=== PATIENT | female | born 1955 | race Caucasian/White ===

== ENCOUNTER 2025-07-08 15:59 | Emergency (ER) | payer OTHER, MEDICARE, SELFPAY ==
--- OUTSIDE RECORDS SUMMARY | 2025-07-05 14:45 | XMS_ITS | Encounter Summary ---
Author Organization [facility] Address [address] [place] [address] Care Team Providers Care Coal Bagger Name Role Phone Gonzalez Simon MD Primary Care Provider [phone] Reason for Visit * Reason Comments Pain Encounter Details Date Type Department Care Team (Late st Contact Info) Description 07/05/2025 2:45 PM EDT Office Visit [facility] [address] [place] [address] Conrad Conteh PA [address] [place] [address] S/P trigger finger release (Primary Dx) Social History Tobacco Use Types Packs/Day Years Used Date Smoking Tobacco: Never Smokeless Tobacco: Never Alcohol Use Standard Drinks/Week Comments Not Currently 0 (1 standard drink = 0.6 oz pur e alcohol) Comments Unknown Sex and Gender Information Value Date Recorded Sex Assigned at Not on file Legal Sex Female 6:39 PM EDT Gender Identity Not on file Sexual Orientation Not on file documented as of this encounter Progress Notes * BAKARI Moore - 07/05/2025 2:45 PM EDT Images from the original note were not included. Orthopedic Office note: NAME: Meme Salazar : 1955 EST PT HERE FOR UNSCHEDULED VISIT P/O- S/P LT MF TRIGGER RELEASE 06/30/25 (5DAYS) [facility] - PT CONCERNED ABOUT HAVING CONSTANT NUMBNESS LT MF/IF- PAIN IS TOLERABLE-+BRUISING/SWELLING NOTED- +TYLENOL - SUTURES INTACT Physical Exam General Appearance: Normal. Respiratory: No acute distress. Musculoskeletal: Left hand: Mild dependent bruising noted to the dorsum of the hand, mild bruising noted at the palmar aspect into the index finger and middle finger. No significant hematoma formation. Sutures present at the A1 shawna of the middle finger with no signs or symptoms of infection, no drainage, or discharge, no erythema. Compartments are soft. Intact wrist range of motion with wrist flexion and extension. Paresthesias noted in the index finger and middle finger on two point discrimination to 5 mm. Fingers formed symmetrically including the little finger and thumb with slight delayed interpretation if it is two or one points touching fingers. Able to close fingers into a fist with minimal tightness on end range of motion. Fingers not completely numb to light touch with pinprick noted present to all digits. No palpable trocar. Prior carpal tunnel release with scar noted and prior trigger finger release in the same hand at the ring finger, both appear well healed. Negative Tinel's noted at the cubital tunnel and carpal tunnel. Skin: Warm and dry, no rash. Neurological: Normal. No orders of the defined types were placed in this encounter. Procedures Results ICD-10-CM 1. S/P trigger finger release Z98.890 Assessment & Plan Postoperative status following left middle finger trigger finger release Mild paresthesias and swelling are likely part of the normal postoperative process given the physical exam and symmetric two-point discrimination in all digits. Treatment plan: Ice application, elevation, and tendon glides are advised. Avoid stressing the postoperative wound until the follow-up appointment for suture removal. There is a history of reaction to sutures if left in for more than 12 days. Follow-up: The patient will follow up for reevaluation in 12 days to see if she is ready for sutureremoval. Questions answered in laymen terms at the bedside. The diagnosis, home exercise plan and any ongoing restrictions/ recommendations reviewed. If unable to be reached in office, I recommend evaluation at nearest Emergency Room if any symptoms worsened or new symptoms develop for requiring urgent evaluation. Visit was preformed using [employer] force pilot speech recognition. documented in this encounter Plan of Treatment Upcoming Encounters Date Type Department Care Team (Late st Contact Info) Description 07/11/2025 8:00 AM EDT Office Visit [facility] [address] [place] [address] Yannick Newman, TAPE DUPLICATOR [address] [place] [address] documented as of this encounter Visit Diagnoses Diagnosis S/P trigger finger release- Primary documented in this encounter Care Teams Coal Bagger Relationship Specialty Start Date End Date Gonzalez Simon MD [address] [place] [address] PCP - General Internal Medicine 04/06/25 documented as of this encounter
[2025-07-08 16:10] VITALS: BP 163/91; PULSE 79; TEMP 36.8; O2SAT 98; BMI 28.3
--- OUTSIDE RECORDS SUMMARY | 2025-07-08 16:10 | XMS_ITS | Encounter Summary ---
Author Organization [facility] [facility] tem Address [id number] [address] [place] [address] Care Team Providers Care Trencher Driver Name Role Phone Jayleen Black MANAGER EMPLOYMENT-INSTRUMENT REPAIRER Primary Care Provider + Reason for Visit * Reason Onset Date Comments Med Refill 08/27/2024 Encounter Details Date Type Department Care Team (Late st Contact Info) Description 08/27/2024 Refill [facility] Internal Medicine - Family Medicine [address] [place] [address] Jayleen Black, MANAGER [facility] [address] [place] [address] Chronic anxiety Social History Tobacco Use Types Packs/Day Years Used Date Smoking Tobacco: Never Smokeless Tobacco: Never Alcohol Use Standard Drinks/Week Comments No 0 (1 standard drink = 0.6 oz pur e alcohol) [facility] Utilities Answer Date Recorded In the past 12 months has [employer], gas, oil, or water [employer] threatened to shut off services in your home? No 03/23/2024 Social Connection and Isolat ion Panel [NHANES] Answer Date Recorded In a typical week, how many times do you talk on the phone with family, friends, or neighbors? More than three times a week 03/23/2024 How often do you get togethe r with friends or relatives? More than three times a week 03/23/2024 How often do you attend chur or buddhist services? Never 03/23/2024 Do you belong to any clubs o r organizations such as roman catholic groups, unions, fraternal or athletic groups, or school groups? No 03/23/2024 How often do you attend meet ings of the clubs or organizations you belong to? Never 03/23/2024 Are you , , di vorced, , never , or living with a partner? 03/23/2024 AUDIT-C Answer Date Recorded Q1: How often do you have a drink containing alcohol? Never 03/23/2024 Q2: How many drinks containi ng alcohol do you have on a typical day when you are drinking? Patient does not drink Q3: How often do you have si x or more drinks on one occasion? Never 03/23/2024 Overall Financial Resource Strain (CARDIA) Answe r Date Recorded How hard is it for you to pa y for the very basics like food, housing, medical care, and heating? Not hard at all 04/10/2023 PHQ-2 Answer Date Recorded Total Score 0 07/22/2024 [facility] of Occupat ional Health - Occupational Stress Questionnaire Answer Date Recorded Do you feel stress - tense, restless, nervous, or anxious, or unable to sleep at night because your mind is troubled all the time - these days? Only a little 03/23/2024 Exercise Vital Sign Answer Date Recorde d On average, how many days pe r week do you engage in moderate to strenuous exercise (like a brisk walk)? 3 days 03/23/2024 On average, how many minutes do you engage in exercise at this level? 60 min 03/23/2024 PRAPARE - Transportation Answer Date Re corded In the past 12 months, has l ack of transportation kept you from medical appointments or from getting medications? No 03/18 In the past 12 months, has l ack of transportation kept you from meetings, work, or from getting things needed for daily living? No 04/10/2023 Housing Instability Answer Date Recorde d Are you worried or concerned that in the next two months you may not have stable housing that you own, rent or stay in as a part of a household? No 04/10/2023 Childcare Answer Date Recorded Do problems getting child ca re make it difficult for you to work or study? No 03/23/2024 Employment Answer Date Recorded Do you need help finding a [facility] career center and/or a training program? No 03/23/2024 Hunger Screening Answer Date Recorded Within the past 12 months we worried whether our food would run out before we got money to buy more. Never True 07/22/2024 Within the past 12 months th e food we bought just didn't last and we didn't have money to get more. Never True 07/22/2024 Purpose - Life Answer Date Recorded I have a purpose and direction in my life. Agree 03/23/2024 Comments No Sex and Gender Information Value Date Recorded Sex Assigned at Female 08/25/2023 12:44 PM EDT Legal Sex Female 11:33 AM EDT Gender Identity Female 08/25/2023 12:44 PM EDT Sexual Orientation Choose not to disclose 2022 12:44 PM EDT documented as of this encounter Plan of Treatment Upcoming Encounters Date Type Department Care Team (Late st Contact Info) Description 08/05/2025 11:20 AM EDT Office Visit [facility] Internal Medicine - Family Medicine [address] [place] [address] Jayleen Black MANAGER EMPLOYMENT-INSTRUMENT REPAIRER [address] [place] [address] documented as of this encounter Visit Diagnoses Diagnosis Chronic anxiety Anxiety state, unspecified documented in this encounter Additional Health Concerns Assessment Noted Time PHQ-9 Depression Total Score: 0 07/22/20 4:01 PM EDT A Body Mass Index follow-up plan has been documented for the patient 03/23/2024 4:44 PM EDT documented as of this encounter Care Teams Trencher Driver Relationship Specialty Start Date End Date Jayleen Black, MANAGER EMPLOYMENT-INSTRUMENT REPAIRER [address] [place] [address] PCP - General Internal Medicine 04/24/24 documented as of this encounter
--- OUTSIDE RECORDS SUMMARY | 2025-07-08 16:10 | XMS_ITS | Encounter Summary ---
Author Organization [facility] tem Address [id number] [address] [place] [address] Care Team Providers Care Bulk System Operator Name Role Phone Jayleen Black CORPORATE LEGAL SECRETARY-FIELD TRAINING AGENT Primary Care Provider + Reason for Visit * Reason Comments Med Refill Encounter Details Date Type Department Care Team (Late st Contact Info) Description 06/21/2025 Refill [facility] Internal Medicine - Family Medicine [address] [place] [address] Jayleen Black [facility] [address] [place] [address] Chronic anxiety Social History Tobacco Use Types Packs/Day Years Used Date Smoking Tobacco: Never Smokeless Tobacco: Never Alcohol Use Standard Drinks/Week Comments No 0 (1 standard drink = 0.6 oz pur e alcohol) [facility] Utilities Answer Date Recorded In the past 12 months has [employer], gas, oil, or water company threatened to shut off services in your [...] 03/23/2024 How often do you attend chur ch or episcopal services? Never 03/23/2024 Do you belong to any clubs o r organizations such as taoist groups, unions, fraternal or athletic groups, or [...] PHQ-2 Answer Date Recorded Total Score 0 06/16/2025 [facility] of Occupat ional Health - Occupational Stress [...] Recorded Do you need help finding a [facility] career center and/or a training program? No 03/23/2024 Hunger Screening Answer Date Recorded Within the past 12 months we worried whether our food would run out before we got money to buy more. Never True 06/16/2025 Within the past 12 months th e food we bought just didn't last and we didn't have money to get more. Never True 06/16/2025 Purpose - Life Answer Date Recorded I [...] Internal Medicine - Family Medicine [address] [place] [address] Jayleen Black CORPORATE LEGAL SECRETARY-FIELD TRAINING AGENT [address] [place] [address] documented as of this encounter Visit Diagnoses Diagnosis Chronic anxiety Anxiety state, unspecified documented in this encounter Additional Health Concerns Assessment Noted Time PHQ-9 Depression Total Score: 0 06/16/20 25 3:47 PM EDT A Body Mass Index follow-up plan has been documented for the patient 03/23/2024 4:44 PM EDT documented as of this encounter Care Teams Bulk System Operator Relationship Specialty Start Date End Date Jayleen Black APRN-FIELD TRAINING AGENT [address] [place] [address] PCP - General Internal Medicine 04/24/24 documented as of this encounter
--- OUTSIDE RECORDS SUMMARY | 2025-07-08 16:10 | XMS_ITS | Encounter Summary ---
Author Organization [facility] tem Address [id number] [address] [place] [address] Care Team Providers Care Medical Observer Name Role Phone Jayleen Black CONVEYOR SYSTEM OPERATOR-MOTEL MANAGER Primary Care Provider + Encounter Details Date Type Department Care Team (Late st Contact Info) Description 02/28/2023 Orders Only [facility] Internal Medicine - Family Medicine [address] [place] [address] Luna Azul CMA Sciatica, right side Social History Tobacco Use Types Packs/Day Years Used Date Smoking Tobacco: Never Smokeless Tobacco: Never Alcohol Use Standard Drinks/Week Comments No 0 (1 standard drink = 0.6 oz pur e alcohol) AUDIT-C Answer Date Recorded Frequency of Alcohol Consumption Never 08/24/2018 Average Number of Drinks Not on file 018 Frequency of Binge Drinking Not on file 06/2018 PHQ-2 Answer Date Recorded Total Score 0 02/24/2023 Childcare Answer Date Recorded Childcare Unknown 04/28/2019 Employment Answer Date Recorded Employment Unknown 04/28/2019 Purpose - Life Answer Date Recorded Purpose and direction in life Unknown Comments Unknown Sex and Gender Information Value Date Recorded Sex Assigned at Female 08/25/2023 12:44 PM EDT Legal Sex Female 11:33 AM EDT Gender Identity Female 08/25/2023 12:44 PM EDT Sexual Orientation Choose not to disclose 2022 12:44 PM EDT COVID-19 Exposure Response Date Recorded In the last month, have you been in contact with someone who was confirmed or suspected to have Coronavirus / COVID-19? No / Unsure 02/24/2023 11:33 AM EDT documented as of this encounter Plan of Treatment Upcoming Encounters Date Type Department Care Team (Late st Contact Info) Description 08/05/2025 11:20 AM EDT Office Visit [facility] Medicine - Family Medicine [address] [place] [address] Jayleen Black, CONVEYOR SYSTEM OPERATOR-MOTEL MANAGER [address] [place] [address] documented as of this encounter Procedures Procedure Name Priority Date/Time Associated Diagnosis Comments XR SPINE LUMBAR 2 OR 3 VWS Routine 02/28/2023 8:40 AM EDT Sciatica, right side documented in this encounter Results * X-ray spine lumbar 2 or 3 views (02/28/2023 8:40 AM EDT) Anatomical Region Laterality Modality MSK, Neuro, Spine, L-spine N/A Compu karen Radiography Jaida Coulter CONVEYOR SYSTEM OPERATOR-INTELLIGENCE SPECIALIST IMG DIAGNOSTIC IMAGING DIONISIO JO Final Result documented in this encounter Visit Diagnoses Diagnosis Sciatica, right side documented in this encounter Additional Health Concerns Assessment Noted Time PHQ-9 Depression Total Score: 0 02/25/20 11:38 AM EDT documented as of this encounter Care Teams Medical Observer Relationship Specialty Start Date End Date Jayleen Black APRN-MOTEL MANAGER [address] [place] [address] PCP - General Internal Medicine 04/24/24 documented as of this encounter
--- OUTSIDE RECORDS SUMMARY | 2025-07-08 16:10 | XMS_ITS | Encounter Summary ---
Author Organization [facility] [employer] [facility] tem Address [facility] [id number] [address] [place] [address] Care Team Providers Care Bingo Cashier Name Role Phone Jayleen Black SLIDE FORMING MACHINE TENDER-HEALTH INFORMATION MANAGER Primary Care Provider + Reason for Visit * Reason Onset Date Comments Med Refill 03/28/2025 Encounter Details Date Type Department Care Team (Late st Contact Info) Description 03/28/2025 Refill [facility] Internal Medicine - Family Medicine [address] [place] [address] Jayleen Black, [facility] [address] [place] [address] Chronic anxiety Social History Tobacco Use Types Packs/Day Years Used Date Smoking Tobacco: Never Smokeless Tobacco: Never Alcohol Use Standard Drinks/Week Comments No 0 (1 standard drink = 0.6 oz pur e alcohol) [facility] Utilities Answer Date Recorded In the past 12 months has [employer], gas, oil, or water [employer] threatened to shut off services in your [...] How often do you attend chur or rastafarian services? Never 03/23/2024 Do you belong to any clubs o r organizations such as yazdanism groups, unions, fraternal or athletic groups, or [...] PHQ-2 Answer Date Recorded Total Score 0 02/24/2025 [facility] of Occupat ional Health - Occupational Stress [...] Recorded Do you need help finding a [facility] career center and/or a training program? No 03/23/2024 Hunger Screening Answer Date Recorded Within the past 12 months we worried whether our food would run out before we got money to buy more. Never True 02/24/2025 Within the past 12 months th e food we bought just didn't last and we didn't have money to get more. Never True 02/24/2025 Purpose - Life Answer Date Recorded I [...] Medicine - Family Medicine [address] [place] [address] Jayleen Black, SLIDE FORMING MACHINE TENDER-HEALTH INFORMATION MANAGER [address] [facility] [place] [address] documented as of this encounter Visit Diagnoses Diagnosis Chronic anxiety Anxiety state, unspecified documented in this encounter Additional Health Concerns Assessment Noted Time PHQ-9 Depression Total Score: 0 02/25/20 25 9:06 AM EDT A Body Mass Index follow-up plan has been documented for the patient 03/23/2024 4:44 PM EDT documented as of this encounter Care Teams Bingo Cashier Relationship Specialty Start Date End Date Jayleen Black, SLIDE FORMING MACHINE TENDER-HEALTH INFORMATION MANAGER [address] [place] [address] PCP - General Internal Medicine 04/24/24 documented as of this encounter
--- OUTSIDE RECORDS SUMMARY | 2025-07-08 16:10 | XMS_ITS | Encounter Summary ---
Author Organization [facility] [employer] [facility] tem Address [id number] [address] [place] [address] Care Team Providers Care Senior Account Director Name Role Phone Jayleen Black FRACTIONATING STILL OPERATOR-SWITCHBOARD WIRE WORKER HELPER Primary Care Provider + Reason for Visit * Reason Onset Date Comments Med Refill 12/28/2024 Encounter Details Date Type Department Care Team (Late st Contact Info) Description 12/28/2024 Refill [facility] Internal Medicine - Family Medicine [address] [place] [address] Jayleen Black, FRACTIONATING STILL [facility] [address] [place] [address] Chronic anxiety Social History Tobacco Use Types Packs/Day Years Used Date Smoking Tobacco: Never Smokeless Tobacco: Never Alcohol Use Standard Drinks/Week Comments No 0 (1 standard drink = 0.6 oz pur e alcohol) [facility] Utilities Answer Date Recorded In the past 12 months has [employer], gas, oil, or water [employer] threatened to shut off services in your [...] How often do you attend chur or islam services? Never 03/23/2024 Do you belong to any clubs o r organizations such as sabianism groups, unions, fraternal or athletic groups, or [...] PHQ-2 Answer Date Recorded Total Score 0 11/04/2024 [facility] of Occupat ional Health - Occupational Stress [...] Recorded Do you need help finding a [facility] career center and/or a training program? No 03/23/2024 Hunger Screening Answer Date Recorded Within the past 12 months we worried whether our food would run out before we got money to buy more. Never True 11/04/2024 Within the past 12 months th e food we bought just didn't last and we didn't have money to get more. Never True 11/04/2024 Purpose - Life Answer Date Recorded I [...] - Family Medicine [address] [place] [address] Jayleen Black FRACTIONATING STILL OPERATOR-SWITCHBOARD WIRE WORKER HELPER [address] [place] [address] documented as of this encounter Visit Diagnoses Diagnosis Chronic anxiety Anxiety state, unspecified documented in this encounter Additional Health Concerns Assessment Noted Time PHQ-9 Depression Total Score: 0 11/04/20 24 11:46 AM EST A Body Mass Index follow-up plan has been documented for the patient 03/23/2024 4:44 PM EDT documented as of this encounter Care Teams Senior Account Director Relationship Specialty Start Date End Date Jayleen Black FRACTIONATING STILL OPERATOR-SWITCHBOARD WIRE WORKER HELPER [address] [place] [address] PCP - General Internal Medicine 04/24/24 documented as of this encounter
--- OUTSIDE RECORDS SUMMARY | 2025-07-08 16:10 | XMS_ITS | Encounter Summary ---
Author Organization [facility] tem Address [facility] [place] [id number] [address] [place] [address] Care Team Providers Care Automotive Service Management Teacher Name Role Phone Jayleen Black Marybeth MACHINE MAINTENANCE SUPERVISOR-ARM REST BUILDER Primary Care Provider + Encounter Details Date Type Department Care Team ([facility] Contact Info) Description 01/13/2023 Orders Only [facility] Internal Medicine - Family Medicine [address] [place] [address] Gonzalez Simon, [address] [place] [address] Social History Tobacco Use Types Packs/Day Years Used Date Smoking Tobacco: Never Smokeless Tobacco: Never Alcohol Use Standard Drinks/Week Comments No 0 (1 standard drink = 0.6 oz pur e alcohol) AUDIT-C Answer Date Recorded Frequency of Alcohol Consumption Never 08/24/2018 Average Number of Drinks Not on file 018 Frequency of Binge Drinking Not on file 06/2018 PHQ-2 Answer Date Recorded Total Score 4 09/04/2022 Childcare Answer Date Recorded Childcare Unknown 04/28/2019 [...] Medicine - Family Medicine [address] [place] [address] Jayleen Black APRN-ARM REST BUILDER [address] [place] [address] documented as of this encounter Visit Diagnoses Not on filedocumented in this encounter Additional Health Concerns Assessment Noted Time PHQ-9 Depression Total Score: 4 09/04/20 22 1:37 PM EDT documented as of this encounter Care Teams Automotive Service Management Teacher Relationship Specialty Start Date End Date Jayleen Black, MACHINE MAINTENANCE SUPERVISOR-ARM REST BUILDER [address] [place] [address] PCP - General Internal Medicine 04/24/24 documented as of this encounter
--- OUTSIDE RECORDS SUMMARY | 2025-07-08 16:10 | XMS_ITS | Encounter Summary ---
Author Organization [employer] [facility] tem Address [facility] [id number] [address] [place] [address] Care Team Providers Care Post Doctoral Researcher Name Role Phone Jayleen Black CASH OFFICE WORKER-CITY COLLECTOR Primary Care Provider + Encounter Details Date Type Department Care Team (Late st Contact Info) Description 01/13/2023 Refill [facility] Internal Medicine - Family Medicine [address] [place] [phone] Angela Pederson CMA Chronic anxiety Social History Tobacco Use Types [...] Description 08/05/2025 11:20 AM EDT Office Visit [facility] Internal [facility] - Family Medicine [address] [place] [address] Jayleen Black APRN-CNP [address] [place] [address] documented as of this encounter Visit Diagnoses Diagnosis Chronic anxiety Anxiety state, unspecified documented in this encounter Additional Health Concerns Assessment Noted Time PHQ-9 Depression Total Score: 4 09/04/20 22 1:37 PM EDT documented as of this encounter Care Teams Post Doctoral Researcher Relationship Specialty Start Date End Date Jayleen Black APRN-MARY [address] [place] [address] PCP - General Internal Medicine 04/24/24 documented as of this encounter
--- OUTSIDE RECORDS SUMMARY | 2025-07-08 16:10 | XMS_ITS | Encounter Summary ---
Author Organization [facility] tem Address [id number] [address] [place] [address] Care Team Providers Care Food And Beverage Service Manager Name Role Phone Jayleen Black GREASE AND TALLOW PUMPER-GLOST TILE SHADER Primary Care Provider + Reason for Visit * Reason Comments Med Refill Encounter Details Date Type Department Care Team (Late st Contact Info) Description 01/26/2025 Refill [facility] Internal Medicine - Family Medicine [address] [place] [address] [facility] [address] [place] [address] Chronic anxiety Social History Tobacco Use Types Packs/Day Years Used Date Smoking Tobacco: Never Smokeless Tobacco: Never Alcohol Use Standard Drinks/Week Comments No 0 (1 standard drink = 0.6 oz pur e alcohol) [facility] Utilities Answer Date Recorded In the past 12 months has [employer], gas, oil, or water company threatened to [...] often do you attend chur ch or orthodox services? Never 03/23/2024 Do you belong to any clubs o r organizations such as gnosticist groups, unions, fraternal or athletic groups, or [...] Answer Date Recorded Total Score 0 11/04/2024 [facility] of Occupat ional Health - Occupational Stress [...] Recorded Do you need help finding a [facility] career center and/or a training program? No [...] - Family Medicine [address] [place] [address] Jayleen Black APRN-GLOST TILE SHADER [address] [place] [address] documented as of this encounter Visit Diagnoses Diagnosis Chronic anxiety Anxiety state, unspecified documented in this encounter Additional Health Concerns Assessment Noted Time PHQ-9 Depression Total Score: 0 11/04/20 11:46 AM EST A Body Mass Index follow-up plan has been documented for the patient 03/23/2024 4:44 PM EDT documented as of this encounter Care Teams Food And Beverage Service Manager Relationship Specialty Start Date End Date Jayleen Black APRN-GLOST TILE SHADER [address] [place] [address] PCP - General Internal Medicine 04/24/24 documented as of this encounter
--- OUTSIDE RECORDS SUMMARY | 2025-07-08 16:10 | XMS_ITS | Encounter Summary ---
Author Organization [facility] tem Address [facility]-[id number] [address] [place] [address] Care Team Providers Care Stenographer Secretary Name Role Phone Jayleen Black MACHINE FEED OPERATOR-MOLDING PROCESS TECHNICIAN Primary Care Provider + Reason for Visit * Reason Onset Date Comments Med Refill 05/23/2025 Encounter Details Date Type Department Care Team (Late st Contact Info) Description 05/23/2025 Refill [facility] Internal Medicine - Family Medicine [address] [place] [address] Jayleen Black, [facility] [address] [place] [address] Chronic anxiety Social History Tobacco Use Types Packs/Day Years Used Date Smoking Tobacco: Never Smokeless Tobacco: Never Alcohol Use Standard Drinks/Week Comments No 0 (1 standard drink = 0.6 oz pur e alcohol) [facility] Utilities Answer Date Recorded In the past 12 months has [employer], gas, oil, or water [facility] threatened to shut off services in your [...] How often do you attend chur or denominational services? Never 03/23/2024 Do you belong to any clubs o r organizations such as nondenominational groups, unions, fraternal or athletic groups, or [...] PHQ-2 Answer Date Recorded Total Score 0 04/29/2025 [facility] of Occupat ional Health - Occupational Stress [...] Recorded Do you need help finding a [facility] career center and/or a training program? No 03/23/2024 Hunger Screening Answer Date Recorded Within the past 12 months we worried whether our food would run out before we got money to buy more. Never True 04/29/2025 Within the past 12 months th e food we bought just didn't last and we didn't have money to get more. Never True 04/29/2025 Purpose - Life Answer Date Recorded I [...] Medicine [address] [place] [address] Jayleen Black, MACHINE FEED OPERATOR-MOLDING PROCESS TECHNICIAN [address] [facility] [place] [address] documented as of this encounter Visit Diagnoses Diagnosis Chronic anxiety Anxiety state, unspecified documented in this encounter Additional Health Concerns Assessment Noted Time PHQ-9 Depression Total Score: 0 04/29/20 25 10:00 AM EDT A Body Mass Index follow-up plan has been documented for the patient 03/23/2024 4:44 PM EDT documented as of this encounter Care Teams Stenographer Secretary Relationship Specialty Start Date End Date Jayleen Black, MACHINE FEED OPERATOR-MOLDING PROCESS TECHNICIAN [address] [place] [address] PCP - General Internal Medicine 04/24/24 documented as of this encounter
--- OUTSIDE RECORDS SUMMARY | 2025-07-08 16:10 | XMS_ITS | Encounter Summary ---
Author Organization [employer] tem Address [facility] [id number] [address] [place] [address] Care Team Providers Care Supervisor Gear Repair Name Role Phone Jayleen Black Marybeth CONTINUOUS CHURN BUTTERMAKER-ALLERGY NURSE Primary Care Provider + Encounter Details Date Type Department Care Team (Late st Contact Info) Description 10/29/2024 [facility] - Family Medicine [address] [place] [phone] Juan Stapleton CMA Social History Tobacco Use Types Packs/Day Years Used Date Smoking Tobacco: Never Smokeless Tobacco: Never Alcohol Use Standard Drinks/Week Comments No 0 (1 standard drink = 0.6 oz pur e alcohol) [facility] Utilities Answer Date Recorded In the past 12 months has [employer], gas, oil, or water [employer] threatened to shut off services in your [...] often do you attend chur ch or confucianism services? Never 03/23/2024 Do you belong to any clubs o r organizations such as jain groups, unions, fraternal or athletic groups, or [...] PHQ-2 Answer Date Recorded Total Score 0 10/28/2024 [facility] of Occupat ional Health - Occupational Stress [...] Recorded Do you need help finding a [facility] career [facility] and/or a training program? No 03/23/2024 Hunger Screening Answer Date Recorded Within the past 12 months we worried whether our food would run out before we got money to buy more. Never True 10/28/2024 Within the past 12 months th e food we bought just didn't last and we didn't have money to get more. Never True 10/28/2024 Purpose - Life Answer Date Recorded I have a purpose and direction in my life. Agree 03/23/2024 Comments No Sex and Gender Information Value Date Recorded Sex Assigned at Female 08/25/2023 12:44 PM EDT Legal Sex Female 11:33 AM EDT Gender Identity Female 08/25/2023 12:44 PM EDT Sexual Orientation Choose not to disclose 2022 12:44 PM EDT documented as of this encounter Miscellaneous Notes * Telephone Encounter - Juan Stapleton CMA - 10/29/2024 12:48 PM EST ----- Message from NAVNEET Randhawa sent at 10/29/2024 8:46 AM EST ----- She was negative for Xanax on her drug screen, when had she taken her last dose before office appointment yesterday? * Telephone Encounter - Mirna Mcgee CMA - 10/29/2024 12:48 PM EST Pt called back .. She said she was afraid this was going to happen . She took a half of a pill Friday the . She olny gets 20 so she will cut them in half and spread them out and only take them on really bad days , she stated she has the other half if you need to see it * Telephone Encounter - NAVNEET Sin - 10/29/2024 12:48 PM EST No, this is consistent with what she told me during her office appt. It can happen with rare/intermittent use. * Telephone Encounter - Mirna Mcgee CMA - 10/29/2024 12:48 PM EST Ok sounds good then documented in this encounter Plan of Treatment Upcoming Encounters Date Type Department Care Team (Late st Contact Info) Description 08/05/2025 11:20 AM EDT Office Visit [facility] Internal Medicine - Family Medicine [address] [place] [address] Jayleen Black APRN-CNP [address] [place] [address] documented as of this encounter Visit Diagnoses Not on filedocumented in this encounter Additional Health Concerns Assessment Noted Time PHQ-9 Depression Total Score: 0 10/28/20 2:02 PM EST A Body Mass Index follow-up plan has been documented for the patient 03/23/2024 4:44 PM EDT documented as of this encounter Care Teams Supervisor Gear Repair Relationship Specialty Start Date End Date Jayleen Black APRN-CNP [address] [place] [address] PCP - General Internal Medicine 04/24/24 documented as of this encounter
--- OUTSIDE RECORDS SUMMARY | 2025-07-08 16:10 | XMS_ITS | Encounter Summary ---
Author Organization [employer] tem Address [facility] [id number] [address] [place] [address] Care Team Providers Care Tinsmith Apprentice Name Role Phone Jayleen Black Marybeth BARREL TURNER-CAPTAIN/CHECK AIRMAN Primary Care Provider + Reason for Visit * Reason Comments Med Refill Encounter Details Date Type Department Care Team (Late st Contact Info) Description 05/14/2023 Refill [facility] Internal Medicine - Family Medicine [address] [place] [phone] Jaida Coulter, BARREL TURNER-BURR GRINDER [address] [facility] [place] [address] Chronic anxiety Social History Tobacco Use Types Packs/Day Years Used Date Smoking Tobacco: Never Smokeless Tobacco: Never Alcohol Use Standard Drinks/Week Comments No 0 (1 standard drink = 0.6 oz pur e alcohol) [facility] Answer Date Recorded Frequency of Alcohol Consumption Never 08/24/2018 Average Number of Drinks Not on file 018 Frequency of Binge Drinking Not on file 06/2018 Overall Financial Resource Strain (CARDIA) Answe r Date Recorded How hard is it for you to pa y for the very basics like food, housing, medical care, and heating? Not hard at all 04/10/2023 PHQ-2 Answer Date Recorded Total Score 0 04/16/2023 PRAPARE - Transportation Answer Date Re corded [...] household? No 04/10/2023 Childcare Answer Date Recorded Childcare Unknown 04/28/2019 [...] Internal Medicine - Family Medicine [address] [place] [address] Jayleen Black, BARREL TURNER-CAPTAIN/CHECK AIRMAN [address] [facility] [place] [address] documented as of this encounter Visit Diagnoses Diagnosis Chronic anxiety Anxiety state, unspecified documented in this encounter Additional Health Concerns Assessment Noted Time PHQ-9 Depression Total Score: 0 04/16/20 23 1:28 PM EDT documented as of this encounter Care Teams Tinsmith Apprentice Relationship Specialty Start Date End Date Jayleen Black BARREL TURNER-CAPTAIN/CHECK AIRMAN [address] [place] [address] PCP - General Internal Medicine 04/24/24 documented as of this encounter
--- OUTSIDE RECORDS SUMMARY | 2025-07-08 16:10 | XMS_ITS | Clinical Summary ---
Author Organization [facility] Address [address], [address] [place] [address] Care Team Providers Care Senior Sas Programmer Name Role Phone Unavailable Primary Care Provider Unavailabl e Social History Tobacco Use Types Packs/Day Years Used Date Smoking Tobacco: Never Assessed Comments Unknown Sex and Gender Information Value Date Recorded Sex Assigned at Not on file Legal Sex Female 2:00 PM EDT Gender Identity Not on file Sexual Orientation Not on file Plan of Treatment Not on file Insurance [employer]
--- OUTSIDE RECORDS SUMMARY | 2025-07-08 16:10 | XMS_ITS | Encounter Summary ---
Author Organization [facility] tem Address [facility] [place] [id number] [address] [place] [address] Care Team Providers Care Pharmacist Per Diem Name Role Phone Jayleen Black REGIONAL LIAISON-LIBRARY CONSULTANT Primary Care Provider + Reason for Visit * Reason Comments Med Refill Encounter Details Date Type Department Care Team (Late st Contact Info) Description 12/30/2024 Refill [facility] Internal Medicine - Family Medicine [address] [place] [address] Jay[facility] [address] [place] [address] Chronic anxiety Social History Tobacco Use Types Packs/Day Years Used Date Smoking Tobacco: Never Smokeless Tobacco: Never Alcohol Use Standard Drinks/Week Comments No 0 (1 standard drink = 0.6 oz pur e alcohol) [facility] Utilities Answer Date Recorded In the past 12 months has [employer], gas, oil, or water company threatened to [...] often do you attend chur ch or mormonism services? Never 03/23/2024 Do you belong to any clubs o r organizations such as rastafarian groups, unions, fraternal or athletic groups, or [...] Answer Date Recorded Total Score 0 11/04/2024 [facility] of Occupat ional Health - Occupational Stress [...] Recorded Do you need help finding a [facility] career center and/or a training program? No [...] - Family Medicine [address] [place] [address] Jayleen Black APRN-LIBRARY CONSULTANT [address] [place] [address] documented as of this encounter Visit Diagnoses Diagnosis Chronic anxiety Anxiety state, unspecified documented in this encounter Additional Health Concerns Assessment Noted Time PHQ-9 Depression Total Score: 0 11/04/20 11:46 AM EST A Body Mass Index follow-up plan has been documented for the patient 03/23/2024 4:44 PM EDT documented as of this encounter Care Teams Pharmacist Per Diem Relationship Specialty Start Date End Date Jayleen Black APRN-LIBRARY CONSULTANT [address] [place] [address] PCP - General Internal Medicine 04/24/24 documented as of this encounter
--- OUTSIDE RECORDS SUMMARY | 2025-07-08 16:10 | XMS_ITS | Encounter Summary ---
Author Organization [employer] tem Address [facility][id number] [address] [place] [address] Care Team Providers Care Awake Overnight Monitor Name Role Phone Jayleen Black SALES AND LEASING AGENT-RAZOR SHARPENER Primary Care Provider + Reason for Visit * Reason Onset Date Comments Med Refill 06/22/2025 Encounter Details Date Type Department Care Team (Late st Contact Info) Description 06/22/2025 Refill [facility] Internal Medicine - Family Medicine [address] [place] [phone] Luna Azul CMA Chronic anxiety Social History Tobacco Use Types Packs/Day Years Used Date Smoking Tobacco: Never Smokeless Tobacco: Never Alcohol Use Standard Drinks/Week Comments No 0 (1 standard drink = 0.6 oz pur e alcohol) [facility] Utilities Answer Date Recorded In the past 12 months has e electric, gas, oil, or water company threatened to [...] often do you attend chur ch or buddhist services? Never 03/23/2024 Do you belong to any clubs o r organizations such as adventist groups, unions, fraternal or athletic groups, or [...] Answer Date Recorded Total Score 0 06/16/2025 [facility] of Occupat ional Health - [...] Do you need help finding a [facility] career center and/or a training program? No [...] Medicine - Family Medicine [address] [place] [address] Jayleen Black, SALES AND LEASING AGENT-RAZOR SHARPENER [address] [place] [address] documented as of this encounter Visit Diagnoses Diagnosis Chronic anxiety Anxiety state, unspecified documented in this encounter Additional Health Concerns Assessment Noted Time PHQ-9 Depression Total Score: 0 06/16/20 25 3:47 PM EDT A Body Mass Index follow-up plan has been documented for the patient 03/23/2024 4:44 PM EDT documented as of this encounter Care Teams Awake Overnight Monitor Relationship Specialty Start Date End Date Jayleen Black SALES AND LEASING AGENT-RAZOR SHARPENER [address] [place] [address] PCP - General Internal Medicine 04/24/24 documented as of this encounter
--- OUTSIDE RECORDS SUMMARY | 2025-07-08 16:10 | XMS_ITS | Encounter Summary ---
Author Organization [facility] tem Address [facility] [id number] [address] [place] [address] Care Team Providers Care Fabrication Mig Welder Name Role Phone Jayleen Black HIGHWAY LANDSCAPE ARCHITECT-AGENT CONTRACT CLERK Primary Care Provider + Encounter Details Date Type Department Care Team (Late st Contact Info) Description 05/30/2025 Results Follow-Up [facility] Internal Medicine - Family Medicine [address] [phone] Juan Stapleton CMA Echo complete W/O contrast Social History Tobacco Use Types Packs/Day Years Used Date Smoking Tobacco: Never Smokeless Tobacco: Never Alcohol Use Standard Drinks/Week Comments No 0 (1 standard drink = 0.6 oz pur e alcohol) [facility] Utilities Answer Date Recorded In the past 12 months has [employer], gas, oil, or water company threatened [...] often do you attend chur ch or denominational services? Never 03/23/2024 Do you belong to any clubs o r organizations such as hoahaoism groups, unions, fraternal or athletic groups, or [...] Answer Date Recorded Total Score 0 04/29/2025 [facility] of Occupat ional Health - Occupational [...] Recorded Do you need help finding a [facility] career center and/or a training program? [...] Medicine - Family Medicine [address] [place] [address] [address] LANDSCAPE ARCHITECT-AGENT CONTRACT CLERK [address] [place] [address] documented as of this encounter Visit Diagnoses Not on filedocumented in this encounter Additional Health Concerns Assessment Noted Time PHQ-9 Depression Total Score: 0 04/29/20 25 10:00 AM EDT A Body Mass Index follow-up plan has been documented for the patient 03/23/2024 4:44 PM EDT documented as of this encounter Care Teams Fabrication Mig Welder Relationship Specialty Start Date End Date Jayleen Black HIGHWAY LANDSCAPE ARCHITECT-AGENT CONTRACT CLERK [address] [place] [address] PCP - General Internal Medicine 04/24/24 documented as of this encounter
--- OUTSIDE RECORDS SUMMARY | 2025-07-08 16:10 | XMS_ITS | Encounter Summary ---
Author Organization [facility] [employer] [facility] tem Address [facility]-[id number] [address] [place] [address] Care Team Providers Care Supervisor Accounts Receivable Name Role Phone Jayleen Black PROMPT CARE RN-LAMINATE FLOOR INSTALLER Primary Care Provider + Reason for Visit * Reason Onset Date Comments Med Refill 11/26/2024 Encounter Details Date Type Department Care Team (Late st Contact Info) Description 11/26/2024 Refill [facility] Internal Medicine - Family Medicine [address] [place] [address] Jayleen Black, PROMPT CARE RNBOSTON [facility] FOR INCURAB[facility] [address] [place] [address] Chronic anxiety Social History Tobacco Use Types Packs/Day Years Used Date Smoking Tobacco: Never Smokeless Tobacco: Never Alcohol Use Standard Drinks/Week Comments No 0 (1 standard drink = 0.6 oz pur e alcohol) [facility] Utilities Answer Date Recorded In the past 12 months has [employer], gas, oil, or water [employer] threatened to shut off services in your [...] How often do you attend chur or uatsdin services? Never 03/23/2024 Do you belong to any clubs o r organizations such as scientology groups, unions, fraternal or athletic groups, or [...] Answer Date Recorded Total Score 0 11/04/2024 [facility] of Occupat ional Health - Occupational [...] Recorded Do you need help finding a [facility] career center and/or a training program? No [...] - Family Medicine [address] [place] [address] Jayleen Black PROMPT CARE RN-LAMINATE FLOOR INSTALLER [address] [place] [address] documented as of this encounter Visit Diagnoses Diagnosis Chronic anxiety Anxiety state, unspecified documented in this encounter Additional Health Concerns Assessment Noted Time PHQ-9 Depression Total Score: 0 11/04/20 24 11:46 AM EST A Body Mass Index follow-up plan has been documented for the patient 03/23/2024 4:44 PM EDT documented as of this encounter Care Teams Supervisor Accounts Receivable Relationship Specialty Start Date End Date Jayleen Black PROMPT CARE RN-LAMINATE FLOOR INSTALLER [address] [place] [place] [address] PCP - General Internal Medicine 04/24/24 documented as of this encounter
--- OUTSIDE RECORDS SUMMARY | 2025-07-08 16:10 | XMS_ITS | Encounter Summary ---
Author Organization [facility] Address [facility] [id number] [address] [place] [address] Care Team Providers Care Wireless Team Member Name Role Phone Jayleen Black Marybeth STEAM TRAP MAN-CEMENT RUBBER Primary Care Provider + Reason for Visit * Reason Onset Date Comments Med Refill 08/08/2023 Encounter Details Date Type Department Care Team (Late st Contact Info) Description 08/08/2023 Refill [facility] Internal Medicine - Family Medicine [address] [place] [phone] Mita Xiao CMA Chronic anxiety Social History Tobacco Use [...] PHQ-2 Answer Date Recorded Total Score 0 06/03/2023 PRAPARE - Transportation Answer Date Re corded [...] Medicine - Family Medicine [address] [place] [address] Jayleen Black STEAM TRAP MAN-CEMENT RUBBER [address] [place] [address] documented as of this encounter Visit Diagnoses Diagnosis Chronic anxiety Anxiety state, unspecified documented in this encounter Additional Health Concerns Assessment Noted Time PHQ-9 Depression Total Score: 0 06/03/20 23 11:41 AM EDT documented as of this encounter Care Teams Wireless Team Member Relationship Specialty Start Date End Date Jayleen Black APRN-CEMENT RUBBER [address] [place] [address] PCP - General Internal Medicine 04/24/24 documented as of this encounter
--- OUTSIDE RECORDS SUMMARY | 2025-07-08 16:10 | XMS_ITS | Encounter Summary ---
Author Organization [employer] tem Address [id number] [address] [place] [address] Care Team Providers Care Inclined Railway Operator Name Role Phone Jayleen Black Marybeth POLE SANDER OPERATOR-VOLUNTEER FIREFIGHTER Primary Care Provider + Reason for Visit * Reason Comments Med Refill Encounter Details Date Type Department Care Team (Late st Contact Info) Description 09/02/2022 Refill [facility] Internal Medicine - Family Medicine [address] [place] [phone] Jaida Coulter, POLE SANDER OPERATOR-CAMPAIGN ANALYST [address] [place] [address] Social History Tobacco Use Types Packs/Day Years [...] have Coronavirus / COVID-19? No / Unsure 09/04/2022 1:27 PM EDT documented as of this encounter Miscellaneous Notes * Telephone Encounter - AmparoNIC Kwong - 09/02/2022 8:21 AM EDT I cannot refill her aplprazolam as it is a controlled substance and her last apt was 04/22/22, her apt needs to have been within 3 month documented in this encounter Plan of Treatment Upcoming Encounters Date Type Department Care Team (Late st Contact Info) Description 08/05/2025 11:20 AM EDT Office Visit [facility] - Family Medicine [address] [place] [address] Jayleen Black APRN-CNP [address] [place] [address] documented as of this encounter Visit Diagnoses Not on filedocumented in this encounter Care Teams Inclined Railway Operator Relationship Specialty Start Date End Date Jayleen Black APRN-CNP [address] [place] [address] PCP - General Internal Medicine 04/24/24 documented as of this encounter
--- OUTSIDE RECORDS SUMMARY | 2025-07-08 16:10 | XMS_ITS | Encounter Summary ---
Author Organization [facility] [employer] [facility] tem Address [id number] [address] [place] [address] Care Team Providers Care Lead Software Tester Name Role Phone Jayleen Black TECHNICAL PROPOSAL WRITER-SUPERVISOR PHOTOSTAT Primary Care Provider + Reason for Visit * Reason Onset Date Comments Med Refill 09/29/2024 Encounter Details Date Type Department Care Team (Late st Contact Info) Description 09/29/2024 Refill [facility] Internal Medicine - Family Medicine [address] [place] [address] Jayleen Black, TECHNICAL PROP[facility]AL [facility] [address] [place] [address] Chronic anxiety Social History Tobacco Use Types Packs/Day Years Used Date Smoking Tobacco: Never Smokeless Tobacco: Never Alcohol Use Standard Drinks/Week Comments No 0 (1 standard drink = 0.6 oz pur e alcohol) [facility] Utilities Answer Date Recorded In the past 12 months has [employer], gas, oil, or water [employer] threatened to shut off services in your [...] How often do you attend chur or mandaeism services? Never 03/23/2024 Do you belong to any clubs o r organizations such as methodist groups, unions, fraternal or athletic groups, or [...] Answer Date Recorded Total Score 0 07/22/2024 [facility] of Occupat ional Health - Occupational Stress [...] Recorded Do you need help finding a [facility] career center and/or a training program? No [...] Medicine [address] [place] [address] Jayleen Black TECHNICAL PROPOSAL WRITER-SUPERVISOR PHOTOSTAT [address] [place] [address] documented as of this encounter Visit Diagnoses Diagnosis Chronic anxiety Anxiety state, unspecified documented in this encounter Additional Health Concerns Assessment Noted Time PHQ-9 Depression Total Score: 0 07/22/20 4:01 PM EDT A Body Mass Index follow-up plan has been documented for the patient 03/23/2024 4:44 PM EDT documented as of this encounter Care Teams Lead Software Tester Relationship Specialty Start Date End Date Jayleen Black, TECHNICAL PROPOSAL WRITER-SUPERVISOR PHOTOSTAT [address] [place] [address] PCP - General Internal Medicine 04/24/24 documented as of this encounter
--- OUTSIDE RECORDS SUMMARY | 2025-07-08 16:10 | XMS_ITS | Encounter Summary ---
Author Organization [facility] Healthcare Address [address] [place] [address] Care Team Providers Care Diploma Medical Assistant Name Role Phone Gonzalez Simon MD Primary Care Provider [phone] Encounter Details Date Type Department Care Team (Late st Contact Info) Description 06/29/2025 [facility] [address] [place] [address] Yannick Newman NP [address] [place], [place] [phone] S/P trigger finger release (Primary Dx) Social [...] on file documented as of this encounter Miscellaneous Notes * Telephone Encounter - Yannick Newman NP - 06/29/2025 11:18 AM EDT Post op pain rx. PDMP reviewed documented in this encounter Plan of Treatment Upcoming Encounters Date Type Department Care Team (Late st Contact Info) Description 07/11/2025 8:00 AM EDT [facility] [place] [phone] Yannick Newman, VEHICLE CALIBRATION ENGINEER [address] [place] [address] documented as of this encounter Visit Diagnoses Diagnosis S/P trigger finger release- Primary documented in this encounter Care Teams Diploma Medical Assistant Relationship Specialty Start Date End Date Gonzalez Simon MD [address] [place] [address] PCP - General Internal Medicine 04/06/25 documented as of this encounter
--- OUTSIDE RECORDS SUMMARY | 2025-07-08 16:10 | XMS_ITS | Encounter Summary ---
Author Organization [facility] tem Address [id number] [address] [place] [address] Care Team Providers Care Business Loan Processor Name Role Phone Jayleen Black Marybeth TYPE PROOF REPRODUCER-LATCHER Primary Care Provider + Encounter Details Date Type Department Care Team (Late st Contact Info) Description 06/16/2025 Results Follow-Up [facility] Internal Medicine - Family Medicine [address] [place] [phone] Gonzalez Simon, [address] [place] [address] POCT EKG, Basic Metabolic Panel Social History Tobacco Use Types Packs/Day Years Used Date Smoking Tobacco: Never Smokeless Tobacco: Never Alcohol Use Standard Drinks/Week Comments No 0 (1 standard drink = 0.6 oz pur e alcohol) [facility] Utilities Answer Date Recorded In the past 12 months has [employer], gas, oil, or water [employer] threatened to shut off services in your [...] often do you attend chur ch or holiness services? Never 03/23/2024 Do you belong to [...] Date Recorded Total Score 0 06/16/2025 [facility] of Occupat ional Health - Occupational [...] Recorded Do you need help finding a [facility] career center and/or a training program? [...] Medicine - Family Medicine [address] [place] [address] Jayleen Black APRN-MARY [address] [facility] [place] [address] documented as of this encounter Visit Diagnoses Not on filedocumented in this encounter Additional Health Concerns Assessment Noted Time PHQ-9 Depression Total Score: 0 06/16/20 25 3:47 PM EDT A Body Mass Index follow-up plan has been documented for the patient 03/23/2024 4:44 PM EDT documented as of this encounter Care Teams Business Loan Processor Relationship Specialty Start Date End Date Jayleen Black APRN-CNP [address] [place] [address] PCP - General Internal Medicine 04/24/24 documented as of this encounter
--- OUTSIDE RECORDS SUMMARY | 2025-07-08 16:10 | XMS_ITS | Encounter Summary ---
Author Organization [facility] Address [address] [place] [address] Care Team Providers Care Telemarketing Fundraiser Name Role Phone Gonzalez Simon MD Primary Care Provider [phone] Reason for Visit * Reason Onset Date Comments Medications 06/30/2025 Encounter Details Date Type Department Care Team (Late st Contact Info) Description 06/30/2025 Telephone [facility] [address] [facility] [address] [place] [address] Jr. Walker Hayden, DO [address] [facility] [address] [place] [address] Medications Social History Tobacco Use Types Packs/Day Years [...] encounter Miscellaneous Notes * Telephone Encounter - Flores Rodriguez - 06/30/2025 9:34 AM EDT [facility] called and left vm. They have a question about her interactions with a couple of her medications. Please call back at [phone] documented in this encounter Plan of Treatment Upcoming Encounters Date Type Department Care Team (Late st Contact Info) Description 07/11/2025 8:00 AM EDT Office Visit [facility] [address] [place] [phone] Yannick Newman, SUPERVISOR TANK CLEANING [address] [place] [address] documented as of this encounter Visit Diagnoses Not on filedocumented in this encounter Care Teams Telemarketing Fundraiser Relationship Specialty Start Date End Date Gonzalez Simon MD [address] [place] [address] PCP - General Internal Medicine 04/06/25 documented as of this encounter
--- OUTSIDE RECORDS SUMMARY | 2025-07-08 16:11 | XMS_ITS | Encounter Summary ---
Author Organization [facility] tem Address [id number] [address] [place] [address] Care Team Providers Care Supervisor Evaporator Name Role Phone Jayleen Black Marybeth OPHTHALMIC LENS INSPECTOR-LOADER Primary Care Provider + Encounter Details Date Type Department Care Team (Late st Contact Info) Description 02/24/2023 Orders Only [facility] Internal Medicine - Family Medicine [address] [place] [phone] Jaida Coulter, OPHTHALMIC LENS INSPECTOR-VAULT TELLER [address] [place] [address] Social History Tobacco Use Types Packs/Day Years [...] Medicine - Family Medicine [address] [place] [address] Jayleen Black APRN-LOADER [address] [facility] [place] [address] documented as of this encounter Visit Diagnoses Not on filedocumented in this encounter Additional Health Concerns Assessment Noted Time PHQ-9 Depression Total Score: 0 02/25/20 11:38 AM EDT documented as of this encounter Care Teams Supervisor Evaporator Relationship Specialty Start Date End Date Jayleen Black APRN-LOADER [address] [facility] [place] [address] PCP - General Internal Medicine 04/24/24 documented as of this encounter
--- OUTSIDE RECORDS SUMMARY | 2025-07-08 16:11 | XMS_ITS | Encounter Summary ---
Author Organization [facility] tem Address [id number] [address] [place] [address] Care Team Providers Care Cpas Name Role Phone Jayleen Black ELECTRIC METER REPAIRER HELPER-INSTRUMENT REPAIR TECHNICIAN Primary Care Provider + Reason for Visit * Reason Comments Med Refill Encounter Details Date Type Department Care Team (Late st Contact Info) Description 06/23/2024 Refill [facility] Internal Medicine - Family Medicine [address] [place] [address] Jay[facility] [address] [place] [address] Chronic anxiety Social History Tobacco Use Types Packs/Day Years Used Date Smoking Tobacco: Never Smokeless Tobacco: Never Alcohol Use Standard Drinks/Week Comments No 0 (1 standard drink = 0.6 oz pur e alcohol) [facility] Utilities Answer Date Recorded In the past 12 months has [employer], gas, oil, or water company threatened to [...] often do you attend chur ch or protestant services? Never 03/23/2024 Do you belong to any clubs o r organizations such as adventism groups, unions, fraternal or athletic groups, or [...] PHQ-2 Answer Date Recorded Total Score 0 03/23/2024 [facility] of Occupat ional Health - Occupational Stress [...] Recorded Do you need help finding a [facility] career center and/or a training program? No 03/23/2024 Hunger Screening Answer Date Recorded Within the past 12 months we worried whether our food would run out before we got money to buy more. Never True 03/23/2024 Within the past 12 months th e food we bought just didn't last and we didn't have money to get more. Never True 03/23/2024 Purpose - Life Answer Date Recorded I [...] - Family Medicine [address] [place] [address] Jayleen Black ELECTRIC METER REPAIRER HELPER-INSTRUMENT REPAIR TECHNICIAN [address] [place] [address] documented as of this encounter Visit Diagnoses Diagnosis Chronic anxiety Anxiety state, unspecified documented in this encounter Additional Health Concerns Assessment Noted Time PHQ-9 Depression Total Score: 0 03/23/20 24 3:55 PM EDT A Body Mass Index follow-up plan has been documented for the patient 03/23/2024 4:44 PM EDT documented as of this encounter Care Teams Cpas Relationship Specialty Start Date End Date Jayleen Black APRN-INSTRUMENT REPAIR TECHNICIAN [address] [place] [address] PCP - General Internal Medicine 04/24/24 documented as of this encounter
--- OUTSIDE RECORDS SUMMARY | 2025-07-08 16:11 | XMS_ITS | Encounter Summary ---
Author Organization [facility] Address [address] [place] [address] Care Team Providers Care Foundation Digger Name Role Phone Gonzalez Simon MD Primary Care Provider [phone] Encounter Details Date Type Department Care Team (Latest Contact Info) Description 07/05/2025 Travel Social History Tobacco Use Types Packs/Day Years [...] on file documented as of this encounter Plan of Treatment Upcoming Encounters Date Type Department Care Team (Late st Contact Info) Description 07/11/2025 8:00 AM EDT Office Visit [facility] [address] [place] [address] Yannick Newman, LEAD PHARMACY TECHNICIAN [address] [place], [place] [phone] documented as of this encounter Visit Diagnoses Not on filedocumented in this encounter Care Teams Foundation Digger Relationship Specialty Start Date End Date Gonzalez Simon MD [address] [place] [address] PCP - General Internal Medicine 04/06/25 documented as of this encounter
--- OUTSIDE RECORDS SUMMARY | 2025-07-08 16:11 | XMS_ITS | Encounter Summary ---
Author Organization [employer] Address [id number] [address] [place] [address] Care Team Providers Care Hand Patcher Name Role Phone Jayleen Black Marybeth COIN PURSE FRAMER-COMPANY DRIVER Primary Care Provider + Reason for Visit * Reason Onset Date Comments Med Refill 06/08/2024 Encounter Details Date Type Department Care Team (Late st Contact Info) Description 06/08/2024 Refill [facility] Internal Medicine - Family Medicine [address] [place] [phone] Mirna Mcgee CMA Osteoarthritis of spine with radiculopathy, lumbar region Social History Tobacco Use Types Packs/Day Years Used Date Smoking Tobacco: Never Smokeless Tobacco: Never Alcohol Use Standard Drinks/Week Comments No 0 (1 standard drink = 0.6 oz pur e alcohol) [facility] Utilities Answer Date Recorded In the past 12 months has [employer], gas, oil, or water company threatened [...] often do you attend chur ch or catholic services? Never 03/23/2024 Do you belong to any clubs o r organizations such as zoroastrian groups, unions, fraternal or athletic groups, or [...] Answer Date Recorded Total Score 0 03/23/2024 [facility] of Occupat ional Health - Occupational [...] Recorded Do you need help finding a [place] [employer] career center and/or a training program? No [...] Medicine - Family Medicine [address] [place] [address] Jayleen Black APRN-COMPANY DRIVER [address] [facility] [place] [address] documented as of this encounter Visit Diagnoses Diagnosis Osteoarthritis of spine with radiculopathy, lumbar region documented in this encounter Additional Health Concerns Assessment Noted Time PHQ-9 Depression Total Score: 0 03/23/20 3:55 PM EDT A Body Mass Index follow-up plan has been documented for the patient 03/23/2024 4:44 PM EDT documented as of this encounter Care Teams Hand Patcher Relationship Specialty Start Date End Date Jayleen Black APRN-COMPANY DRIVER [address] [facility] [place] [address] PCP - General Internal Medicine 04/24/24 documented as of this encounter
--- OUTSIDE RECORDS SUMMARY | 2025-07-08 16:11 | XMS_ITS | Encounter Summary ---
Author Organization [employer] Address [id number] [address] [place] [address] Care Team Providers Care Business Management Analyst Name Role Phone Jayleen Black Marybeth CERTIFIED INDUSTRIAL HYGIENIST-FORMING MACHINE UPKEEP MECHANIC Primary Care Provider + Encounter Details Date Type Department Care Team (Late st Contact Info) Description 09/01/2023 [facility]phone [facility] Medicine [address] [place] [address] Luna Azul CMA Social History Tobacco Use Types Packs/Day [...] encounter Miscellaneous Notes * Telephone Encounter - Luna Azul CMA - 09/01/2023 11:01 AM EDT Patient called because she is coming in next week for her Wellness. She went to have her blood workdone and the diagnosis is not Wellness so her insurance is not going to pay for it. Can you send the orders over with the Wellness diagnosis? * Telephone Encounter - NIC Chandra - 09/01/2023 11:01 AM EDT Raven, you will have to help me with this. Her primary insurance is medicare, her secondary I believe is [employer]. My understanding is there is no wellness code for Medicare and it is primary - whatdo I do - Jaida * Telephone Encounter - Raven King - 09/01/2023 11:01 AM EDT I spoke to patient because something did not seem right. After speaking with Meme, she has [employer] insurance as Primary and Medicare as secondary. So she is correct, a wellness code needs to be listed for her labs to be covered. Please send over corrected orders. Thanks * Telephone Encounter - NIC Chandra - 09/01/2023 11:01 AM EDT Someone has to change something in the system then, it won't let me send that through as it says I need a waiver with the Medicare in there it says this isn't an appropriate diagnosis * Telephone Encounter - Raven King - 09/01/2023 11:01 AM EDT Ok, I changed her insurance's around. It was showing an automobile ins as Prim. Let me know if you are still having issues * Telephone Encounter - NIC Chandra - 09/01/2023 11:01 AM EDT Got it thanks - Jaida documented in this encounter Plan of Treatment Upcoming Encounters Date Type Department Care Team (Late st Contact Info) Description 08/05/2025 11:20 AM EDT Office Visit [facility] Internal Medicine - Family Medicine [address] [place] [address] Jayleen Black APRN-CNP [address] [place] [address] documented as of this encounter Visit Diagnoses Not on filedocumented in this encounter Additional Health Concerns Assessment Noted Time PHQ-9 Depression Total Score: 0 06/03/20 23 11:41 AM EDT documented as of this encounter Care Teams Business Management Analyst Relationship Specialty Start Date End Date Jayleen Black APRN-CNP [address] [place] [address] PCP - General Internal Medicine 04/24/24 documented as of this encounter
--- OUTSIDE RECORDS SUMMARY | 2025-07-08 16:11 | XMS_ITS | Clinical Summary ---
Author Organization [facility] Healthcare Address [address] [place] [address] Care Team Providers Care Technical Communicator Name Role Phone Gonzalez Simon MD Primary Care Provider [phone] Allergies Active Allergy Reactions Criticality Noted Date Comments Acetaminophen-Codeine GI intolerance Low 01/10/2022 Other reaction(s): GI UPSET Atorvastatin Rash Low 07/22/2024 Gold Other 08/24/2018 infection Lisinopril Other Medium 04/29/2025 Penicillin G Hives Medium 01/10/2022 Other reaction(s): hives Prednisone Headache 06/02/2023 Silver Other 08/24/2018 infection Tapinarof Itching Medium 02/24/2025 Wound Dressing Adhesive Rash Low 01/10/2022 Other reaction(s): RASH Medications carboxymethylce llulose PF (Refresh Plus) 0.5 % ophthalmic solution 1 drop 2 (two) times a day as needed Active cholecalciferol (Vitamin D-3) 125 MCG (5000 UT) capsule Take 5,000 Units by mouth in the morning. Active rosuvastatin (Crestor) 5 MG tablet Take 5 mg by mouth at bedtime Active LORazepam (Ativan) 0.5 MG tablet Take 0.5 mg by mouth 2 (two) times a day as needed for anxiety Active traMADol (Ultram) 50 MG tabletIndicatio ns:S/P trigger finger release Take 1 tablet (50 mg) by mouth every 6 (six) hours if needed for severe pain for up to 3 days 12 tablet 06/29/2025 07/02/20 25 Active Problems Problem Noted Date Diagnosed Date Eczema 06/14/2025 Osteoarthritis of spine with radiculopathy, lumb ar region 04/16/2023 Acute medial meniscus tear of left knee 09/02/20 Chronic pain 09/02/2022 Nonallergic rhinitis 09/02/2022 Solitary pulmonary nodule 09/02/2022 Chronic anxiety 04/22/2022 Hyperlipidemia 04/22/2022 Vitamin D deficiency 03/28/2021 Gastro-esophageal reflux disease with esophagiti s 10/28/2018 Encounters Date Type Department Care Team Description 07/05/2025 2:45 PM EDT Office Visit [facility] [address] [place] [address] Conrad Conteh PA S/P trigger finger release (Primary Dx) 07/05/2025 Travel 07/05/2025 Telephone [facility] [address] [place] [phone] Jr. Walker Hayden, DO Numbness 06/30/2025 Telephone [facility] [address] [facility] [address] [place] [address] Jr. Walker Hayden, DO Medications 06/29/2025 Refill [facility] [address] [place] [phone] Yannick Newman NP S/P trigger finger release (Primary Dx) 06/20/2025 9:00 AM EDT Office Visit [facility] [address] [place] [phone] Yannick Newman, AMADA Pre-op exam (Primary Dx) 06/20/2025 [facility] [address] [place] [address] Yannick Newman NP 06/20/2025 Travel 05/17/2025 9:15 AM EDT Office Visit [facility] [place] [address] Jr. Walker Hayden, Trigger middle finger of left hand (Primary Dx) 05/17/2025 Bamboo flowsheet [facility] [address] [place] [address] Jr. Walker Hayden DO 05/17/2025 Travel 05/13/2025 Travel 05/11/2025 10:00 AM EDT Office Visit [facility] [address] [place] [address] Conrad Conteh PA Left hand pain (Primary Dx); Trigger middle finger of left hand 05/11/2025 Bamboo flowsheet [facility] [address] [place] [address] Conrad Conteh PA 05/11/2025 Travel from Last 3 Months Family History Medical History Relation Name Comments Cancer Father Bladder & Prost ate Dementia Father Heart Issues Mother Rheum arthritis Mother Relation Name Status Comments Father Mother Social History Tobacco Use Types Packs/Day Years Used Date Smoking Tobacco: Never Smokeless Tobacco: Never Tobacco Cessation:Counseling Given: Not Answered Alcohol Use Standard Drinks/Week Comments Not Currently 0 (1 standard drink = 0.6 oz pur e alcohol) Comments Unknown Sex and Gender Information Value Date Recorded Sex Assigned at Not on file Legal Sex Female 6:39 PM EDT Gender Identity Not on file Sexual Orientation Not on file Last Filed Vital Signs Vital Sign Reading Time Taken Comments Blood Pressure 126/84 08/05/2018 12:00 PM EDT Pulse - - Temperature - - Respiratory Rate - - Oxygen Saturation - - Inhaled Oxygen Concentration - - Weight 65.8 kg (145 lb) 06/20/2025 8:50 AM EDT Height 152.4 cm (5') 06/20/2025 8:50 AM EDT Body Mass Index 28.32 06/20/2025 8:50 AM EDT Plan of Treatment Upcoming Encounters Date Type Department Care Team (Late st Contact Info) Description 07/11/2025 8:00 AM EDT Office Visit [facility] [address] [place] [address] Yannick Newman, [employer] [address] [place] [address] [phone] (work) Health Maintenance Due Date Last Done Comments CT Colonography 1955 FIT-DNA 1955 FIT 1955 FOBT 1955 Sigmoidoscopy 1955 Influenza Vaccine (#1) 2025 4, 08/23/2023, 08/16/2022, Additional history exists Mammogram 10/20/2025 10/20/2024, 110 11/2022, 08/14/2022, Additional history exists Colonoscopy 12/09/2026 12/09/2016 Colorectal Cancer Screening 12/09/2026 Pneumococcal Vaccine: 65+ Years Completed 2 Procedures Procedure Name Priority Date/Time Associated Diagnosis Comments BI MAMMOGRAM SCREENING TOMOSYNTHESIS BILATERAL Routine 05/05/2018 COLONOSCOPY Routine 12/09/2016 12:00 PM EST from Last 3 Months or Most Recently Relevant to Health Maintenance Results * Bilateral screening mammogram with tomosynthesis (05/05/2018) Anatomical Region Laterality Modality Breast Bilateral Mammography Narrative 05/05/2018 12:00 AM EDT PERFORMED AT [facility] LOCATION:[address] [address] Patient: MEME SALAZAR Exam Date: 05/05/2018 : 1955 Gender:F Ordering : RICARDA BROWN . Admission #: [id number] Family : DR CRISTO CANAS Order #: [id number] CLICK HERE TO VIEW EXAM RADIOLOGY REPORT PROCEDURE: MAMMOGRAM BILATERAL SCREENING DIGITAL WITH COMPUTER AIDED DETECTION COMPARISON: MG MAMM SCREEN GENEVIEVE W CAD, 11/01/2015. MG MAMM SCREEN GENEVIEVE W CAD, 04/15/2017. INDICATIONS: Screening mammogram Calculator Name NCI Breast Cancer Risk Assessment Tool 5 Year Breast Cancer Risk 1.50% Lifetime Breast Cancer Risk 6.80% Personal Breast Cancer No Personal Ovarian Cancer No Treatments None Family Cancers Grandmother-paternal with breast cancer at age 50; Mother See Below For Report See Below For Report LOCATION: [facility] BREAST COMPOSITION: Scattered fibroglandular densities (25-50% glandular). FINDINGS: DIAGNOSTIC CATEGORY 1--NEGATIVE ASSESSMENT. RIGHT BREAST: No significant suspicious finding. No significant change has occurred. LEFT BREAST: No significant suspicious finding. No significant change has occurred. RECOMMENDATIONS: ROUTINE MAMMOGRAM AND CLINICAL EVALUATION. PLEASE NOTE: A NORMAL MAMMOGRAM DOES NOT EXCLUDE THE POSSIBILITY OF BREAST CANCER. A CLINICALLY SUSPICIOUS PALPABLE LUMP SHOULD BE BIOPSIED. Dictated by: Emir Simons MD on 05/05/2018 at 17:37 Approved by: Emir Simons MD on 05/05/2018 at 17:40 Father with bladder/prostate cancer at age 55. Procedure Note CONVERSION, GENERIC - 05/23/2023 PERFORMED AT [facility] LOCATION:[address] [address] Patient: MEME SALAZAR Exam Date: 05/05/2018 : 1955 Gender:F Ordering : RICARDA BROWN . Admission #: [id number] Family : DR CRISTO CANAS Order #: [id number] CLICK HERE TO VIEW EXAM RADIOLOGY REPORT PROCEDURE: MAMMOGRAM BILATERAL SCREENING DIGITAL WITH COMPUTER AIDED DETECTION COMPARISON: MG MAMM SCREEN GENEVIEVE W CAD, 11/01/2015. MG MAMM SCREEN BILW CAD, 04/15/2017. INDICATIONS: Screening mammogram Calculator Name NCI Breast Cancer Risk Assessment Tool 5 Year Breast Cancer Risk 1.50% Lifetime Breast Cancer Risk 6.80% Personal Breast Cancer No Personal Ovarian Cancer No Treatments None Family Cancers Grandmother-paternal with breast cancer at age 50;Mother See Below For Report See Below For Report LOCATION: [facility] BREAST COMPOSITION: Scattered fibroglandular densities (25-50%glandular). FINDINGS: DIAGNOSTIC CATEGORY 1--NEGATIVE ASSESSMENT. RIGHT BREAST: No significant suspicious finding. No significant changehas occurred. LEFT BREAST: No significant suspicious finding. No significant changehas occurred. RECOMMENDATIONS: ROUTINE MAMMOGRAM AND CLINICAL EVALUATION. PLEASE NOTE: A NORMAL MAMMOGRAM DOES NOT EXCLUDE THE POSSIBILITY OFBREAST CANCER. A CLINICALLY SUSPICIOUS PALPABLE LUMP SHOULD BE BIOPSIED. Dictated by: Emir Simons MD on 05/05/2018 at 17:37 Approved by: Emir Simons MD on 05/05/2018 at 17:40 Father with bladder/prostate cancer at age 55. [facility] IMG BI PROCEDURES Final Result * Colonoscopy (12/09/2016 12:00 PM EST) Anatomical Region Laterality Modality Endoscopy 12/09/2016 12:0 0 PM EST Narrative 12/16/2016 12:00 PM EST PERFORMED AT [facility] LOCATION:[id number] severe sigmoid diverticulosis Procedure Note CONVERSION, GENERIC - 04/03/2023 PERFORMED AT [facility] LOCATION:[id number] severe sigmoid diverticulosis [facility] ENDOSCOPY PROCEDURE ORDERABLES F inal Result from Last 3 Months or Most Recently Relevant to Health Maintenance Insurance [employer] Care Teams Technical Communicator Relationship Specialty Start Date End Date Gonzalez Simon MD [address] [place] [address] PCP - General Internal Medicine 04/06/25
--- OUTSIDE RECORDS SUMMARY | 2025-07-08 16:11 | XMS_ITS | Clinical Summary ---
Author Organization [employer] pte tem Address [id number] [address] [place] [address] Care Team Providers Care Rheumatology Nurse Name Role Phone Jayleen Black Marybeth CASINO CONTROLLER-WAREHOUSE ADMINISTRATOR Primary Care Provider + Allergies Active Allergy Reactions Criticality Noted Date Comments Adhesive Rash Low 01/10/2022 Other reaction(s): RASH Adhesive Tape-Silicones Rash Low 08/18/2018 Acetaminophen-Codeine Low 01/10/2022 Other reaction(s): GI UPSET Gold Au 198 Other (See Comments) 08/24/2018 infection Gold Keratinate Other (See Comments) 08/24/2018 infection Atorvastatin Rash Low 07/22/2024 Lisinopril Hypotension Medium 04/29/2025 Penicillin Medium 01/10/2022 Other reaction(s): hives Prednisone Headache 06/02/2023 Silver Other (See Comments) 08/24/2018 infection Tapinarof Itching Medium 02/24/2025 Medications cholecalciferol, vitamin D3, (VITAMIN D3) 5,000 units capsule Take 1 capsule (5,000 Units total) by mouth in the morning. Active carboxymethylcellu lose (REFRESH PLUS) 0.5 % dropperette 1 drop as needed in the morning and 1 drop as needed in the evening for dry eyes. Active rosuvastatin (CRESTOR) 5 mg tabletIndications: Hyperlipidemia, unspecified hyperlipidemia type Take 1 tablet (5 mg total) by mouth nightly. 30 tablet 11 4 Active famotidine (PEPCID) 20 mg tablet Take 1 tablet (20 mg total) by mouth in the morning and 1 tablet (20 mg total) before bedtime. 60 tablet 1 5 Active LORazepam (ATIVAN) 0.5 mg tabletIndications: Chronic anxiety Take 1 tablet (0.5 mg total) by mouth 2 (two) times a day as needed for anxiety. 60 tablet 5 Active albuterol (PROVENTIL HFA;VENTOLIN HFA) 90 mcg/actuation inhalerIndications :Reactive airway disease without complication, unspecified asthma severity, unspecified whether persistent Inhale 2 puffs every 6 (six) hours as needed for wheezing. 18 g 5 025 Discontinu ed(Patient Stopped On Own) LORazepam (ATIVAN) 0.5 mg tabletIndications: Chronic anxiety Take 1 tablet by mouth twice daily as needed for anxiety 60 tablet 5 025 Discontinu ed(Reorder ) Active Problems Problem Noted Date Diagnosed Date Eczema 06/14/2025 Osteopenia of multiple sites 04/29/2025 Osteoarthritis of spine with radiculopathy, lumb ar region 04/16/2023 Chronic pain 09/02/2022 Joint ankylosis of the shoulder region 2 Left knee pain 09/02/2022 Non-allergic rhinitis 09/02/2022 Other specified postprocedural states 09/02/2022 Other tear of medial meniscu s, current injury, left knee, initial encounter 09/02/2022 Shoulder joint pain 09/02/2022 Solitary pulmonary nodule 09/02/2022 Acute medial meniscus tear of left knee 09/02/20 22 Chronic anxiety 04/22/2022 Hyperlipidemia 04/22/2022 Vitamin D deficiency 03/28/2021 Gastro-esophageal reflux disease with esophagiti s 10/28/2018 Wart of face 09/01/2018 Changing skin lesion 08/24/2018 Encounters Date Type Department Care Team Description 06/22/2025 Refill [facility] - Family Medicine [address] [place] [address] Luna Azul CMA Chronic anxiety 06/22/2025 Orders Only [facility] [address] [place] [address] Jayleen Black, CASINO CONTROLLER-WAREHOUSE ADMINISTRATOR 06/21/2025 Refill [facility] - Family Medicine [address] [place] [address] Jayleen Black, CASINO CONTROLLER-WAREHOUSE ADMINISTRATOR Chronic anxiety 06/21/2025 Refill [facility] - Family Medicine [address] [place] [address] Jayleen Black, CASINO CONTROLLER-WAREHOUSE ADMINISTRATOR Chronic anxiety 06/16/2025 4:00 PM EDT Office Visit [facility] Medicine [address] [place] [address] Jayleen Black, CASINO CONTROLLER-WAREHOUSE ADMINISTRATOR Preoperative clearance (Primary Dx) 06/16/2025 Results [facility] Medicine [address] [place] [address] Gonzalez Simon, POCT EKG, Basic Metabolic Panel 06/16/2025 Travel 06/14/2025 Telephone [facility] - [facility] Medicine [address] [place] [address] Tim Wilder, APOLINAR 05/30/2025 Results Follow-Up [facility] - [facility] Medicine [address] [place] [address] Juan Stapleton CMA Echo complete W/O contrast 05/25/2025 8:30 AM EDT - 05/25/2025 11:59 PM EDT [facility] [address] [place] [id number] Palpitations Discharge Disposition: Home 05/25/2025 Travel 05/23/2025 Orders Only [facility] - [facility] Medicine [address] [place] [address] Jayleen Black, CASINO CONTROLLER-WAREHOUSE ADMINISTRATOR 05/23/2025 Refill [facility] - Family Medicine [address] [place] [address] Jayleen Black, CASINO CONTROLLER-WAREHOUSE ADMINISTRATOR Chronic anxiety 05/23/2025 Refill [facility] - Family Medicine [address] [place] [address] Jayleen Black, CASINO CONTROLLER-WAREHOUSE ADMINISTRATOR Chronic anxiety 04/29/2025 10:00 AM EDT Office Visit [facility] - [facility] Medicine [address] [place] [address] Jayleen Black, CASINO CONTROLLER-WAREHOUSE ADMINISTRATOR Palpitations (Primary Dx); Chronic anxiety; Osteopenia of multiple sites; Elevated BP without diagnosis of hypertension 04/29/2025 Travel 04/27/2025 Orders Only [facility] - [facility] [address] [place] [address] Jayleen Black, CASINO CONTROLLER-WAREHOUSE ADMINISTRATOR 04/25/2025 Orders Only [facility] - [facility] Medicine [address] [place] [address] Jayleen Black, CASINO CONTROLLER-WAREHOUSE ADMINISTRATOR 04/25/2025 Refill [facility] - Family Medicine [address] [place] [address] Jayleen Black, CASINO CONTROLLER-WAREHOUSE ADMINISTRATOR Chronic anxiety 04/25/2025 Refill [facility] - Family Medicine [address] [place] [address] Jayleen Black, CASINO CONTROLLER-WAREHOUSE ADMINISTRATOR Chronic anxiety 04/07/2025 Orders Only [facility] - Family Medicine [address] [place] [address] Juan Stapleton CMA Asymptomatic menopausal state from Last 3 Months Immunizations Immunization Administration Dates Next Due Influenza, High-dose, Quadrivalent 08/23/2023, Influenza, Im Flucelvax (Pf) 02/28/2016 Influenza, Injectable, quadrivalent (PF) 024,09/01/2020 Pneumococcal Conjugate 20-valent 04/22/2022 RSV, recombinant, protein harley bunit RSVpreF, adjuvant reconstituted, 0.5 mL, PF 10/03/2023 Tdap 06/02/2023 Zoster Vaccine Recombinant 01/30/2024,11/19/2023 Family History Medical History Relation Name Comments Alcohol abuse Brother Cancer Father URINARY BLADDER , PROSTATE Coronary aneurysm Father Dementia Father Diabetes Father Hyperlipidemia Father Endometrial cancer Maternal Aunt 1 Jaida Brown Ovarian cancer Maternal Aunt 2 Jaida Ball Stroke Maternal Grandfather Heart attack Maternal Grandmother Heart attack Maternal Uncle Arthritis Mother Jo Latvis Bowel dysfunction Mother Jo Latvis Cancer Mother Jo Latvis CERVICAL Endometrial cancer Mother Jo Latvis Heart disease Mother Jo Latvis Hyperlipidemia Mother Jo Latvis Hypertension Mother Jo Latvis Rheum arthritis Mother Jo Latvis Breast cancer Paternal Grandmother Theophila Latvis Relation Name Status Comments Brother (Age 54) Father (Age 84) Maternal Aunt 1 Jaida Brown Maternal Aunt 2 Jaida Ball Maternal Grandfather Maternal Grandmother Maternal Uncle Mother Jo Latvis (Age 77) Paternal Grandmother Theophila Latvis Social History Tobacco Use Types Packs/Day Years Used Date Smoking Tobacco: Never Smokeless Tobacco: Never Tobacco Cessation:Counseling Given: Not Answered Alcohol Use Standard Drinks/Week Comments No 0 (1 standard drink = 0.6 oz pur e alcohol) [employer] Utilities Answer Date Recorded In the past 12 months has [employer], gas, oil, or water [employer] threatened to shut off services in your [...] often do you attend chur ch or nondenominational services? Never 03/23/2024 Do you belong to any clubs o r organizations such as jainism groups, unions, fraternal or athletic groups, or [...] Answer Date Recorded Total Score 0 06/16/2025 [facility] - [...] Recorded Do you need help finding a [facility] career [facility] and/or a training [...] not to disclose 2022 12:44 PM EDT Last Filed Vital Signs Vital Sign Reading Time Taken Comments Blood Pressure 130/88 06/16/2025 3:47 PM EDT Pulse 84 06/16/2025 3:47 PM EDT Temperature 36.1 C (97 F) 06/16/2025 3:47 PM EDT Respiratory Rate 18 06/16/2025 3:47 PM EDT Oxygen Saturation 99% 06/16/2025 3:47 PM EDT Inhaled Oxygen Concentration - - Weight 65.8 kg (145 lb) 06/16/2025 3:47 PM EDT Height 152.4 cm (5') 06/16/2025 3:47 PM EDT Body Mass Index 28.32 06/16/2025 3:47 PM EDT Plan of Treatment Upcoming Encounters Date Type Department Care Team (Late st Contact Info) Description 08/05/2025 11:20 AM EDT Office Visit [facility] - Family Medicine [address] [place] [address] Jayleen Black, CASINO CONTROLLER-WAREHOUSE ADMINISTRATOR [address] [place] [address] Health Maintenance Due Date Last Done Comments Adult BMI Follow Up Plan 03/23/2025 03/23/2024 Influenza Vaccine 07/18/2025 10/02/2024, , 08/16/2022, Additional history exists Mammogram 10/20/2025 10/20/2024, 11/0 11/2022, 08/14/2022, Additional history exists Adult BMI Screening 06/16/2026 06/16/2025 Depression Screening 06/16/2026 06/16/2025 Fall Risk Screening 06/16/2026 06/16/2025 Tobacco Screening 06/16/2026 06/16/2025 Colonoscopy 12/09/2026 12/09/2016, 11/18, 12/09/2016, Additional history exists DTaP,Tdap and Td Vaccines (2 - Td or Tdap) 06/02/2033 06/02/2023 COVID-19 Vaccine Discontinued 10/04/2021, , 02/08/2021 Zoster (Shingles) Vaccine Completed 01/30/2024, 01/2024 Medical Devices Not on file Procedures Procedure Name Priority Date/Time Associated Diagnosis Comments BASIC METABOLIC PANEL Routine 06/16/2025 4:55 PM EDT Preoperative clearance POCT EKG Routine 06/16/2025 4:50 PM EDT Preoperative clearance ECHO COMPLETE WO CONTRAST Routine 05/25/2025 8:57 AM EDT Palpitations DEXA SCAN CENTRAL SKELETAL Routine 04/07/2025 12:38 PM EDT Asymptomatic menopausal state MAMM SCREENING BILATERAL W CAD Routine 10/20/2024 9:43 AM EST Encounter for screening mammogram for malignant neoplasm of breast COLONOSCOPY Routine 12/09/2016 from Last 3 Months or Most Recently Relevant to Health Maintenance Results * (ABNORMAL) Basic Metabolic Panel (06/16/2025 4:55 PM EDT) SODIUM 137 134 - 146 mmol/L 06/16/2025 10:04 PM EDT [facility] POTASSIUM 4.3 3.5 - 5.0 mmol/L 06/16/2025 10:04 PM EDT [facility] CHLORIDE 102 98 - 109 mmol/L 06/16/2025 10:04 PM EDT [facility] CARBON DIOXIDE 27 22 - 32 mmol/L 06/16/2025 10:04 PM EDT [facility] ANION GAP 8 5 - 15 mmol/L 06/16/2025 10:04 PM EDT [facility] BLOOD UREA NITROGEN 29(H) 5 - 27 mg/dL 06/16/2025 10:04 PM EDT [facility] CREATININE 0.87 0.40 - 1.00 mg/dL 06/16/2025 10:04 PM EDT [facility] Comment:METHOD TRACEABLE TO IDMS STANDARD GLUCOSE 90 65 - 99 mg/dL 06/16/2025 10:04 PM EDT [facility] CALCIUM 9.7 8.5 - 10.5 mg/dL 06/16/2025 10:04 PM EDT [facility] EGFR Non-Race Dependent 72 >=60 ml/min/1.7 3sq.m 06/16/2025 10:04 PM EDT [facility] Comment: Reported eGFR is based on the CKD-EPI 2020 equation that does not use a race coefficient. Blood Venous blood / Unknown 06/16/2025 4:55 PM EDT 06/16/2025 4:55 PM EDT Jayleen Black CASINO CONTROLLER-WAREHOUSE ADMINISTRATOR LAB BLOOD ORDERABLES Fin al Result [facility] [address] [place] [address], [place] [phone] * POCT EKG (06/16/2025 4:50 PM EDT) Jayleen Black CASINO CONTROLLER-WAREHOUSE ADMINISTRATOR ECG ORDERABLES Final Re sult MANUALLY TRANSCRIBED RESULTS * Echo complete W/O contrast (05/25/2025 8:57 AM EDT) FS 33 28 - 44 % XCELERA LVIDd 4.20 cm XCELERA LVIDs 2.80 cm XCELERA IVS 0.80 0.6 - 1.1 cm XCELERA PW 0.90 0.6 - 1.1 cm XCELERA LVOT diameter 1.90 cm XCELERA TDI 8.16 cm/s XCELERA MV TDI E' (medial) 6.31 cm/s XCELERA LA Volume Index 27.4 mL/m2 XCELERA E/A ratio 0.76 XCELERA E wave deceleration time 208.00 msec XCELERA MV Peak E Ousmane 78.60 cm/s XCELERA MV Peak A Ousmane 103.00 cm/s XCELERA Aortic root 2.60 cm XCELERA LA volume 45.10 cm3 XCELERA RV diastolic dimension (basal) 31.0 mm XCELERA TAPSE 2.23 cm XCELERA AV peak ousmane 126.00 cm/s XCELERA LVOT peak ousmane 0.95 m/s XCELERA AV peak gradient 6.35 mmHg XCELERA MV pressure 1/2 time 61.00 ms XCELERA MV valve area p 1/2 method 3.61 cm2 XCELERA TR Peak Ousmane 2.3 m/s XCELERA TR peak gradient 20.25 mmHg XCELERA LV ESV A2C 45.40 mL XCELERA LV ESV A4C 43.50 mL XCELERA LV RWT 2D 42.86 XCELERA Left Ventricle Mass 109.09064 [id number] 5 g XCELERA Interventricular Septum Diastolic Thickness by 2D 8 cm XCELERA Est. RA pressure 3 mmHg XCELERA EF - 3D Echo 64 % XCELERA TR max ousmane 2.30 m/s XCELERA MV E' average 7.0 cm/s XCELERA TASV 11.2 cm/s XCELERA RA area 11.6 cm2 XCELERA RV Peak Systolic Pressure 23 mmHg XCELERA Anatomical Region Laterality Modality Chest N/A Ultrasound Narrative 05/25/2025 11:25 AM EDT Left ventricle appears normal in size and systolic function with an ejection fraction of 60-65%, and no hypertrophy or segmental wall motion abnormalities Right ventricle normal size and systolic function Mitral regurgitation, mild Normal atria Left Ventricle Left ventricle appears normal in size. Wall thickness is normal. Systolic function is normal with an ejection fraction of 60-65%. No obvious regional wall motion abnormalities. There is no diastolic dysfunction and normal left atrial pressure. Lateral E' is 8.16 cm/s. Medial E' is 6.31 cm/s. Average E' is 7.0 cm/s. Right Ventricle Right ventricular size appears normal. The right ventricular basal diameter is 31.0 mm. Systolic function is normal. Left Atrium Left atrium volume index is normal. The left atrial volume index is 27.4 mL/m2. Right Atrium Right atrium is normal in size. The right atrial area is 11.6 cm2. IVC/SVC The right atrial pressure is estimated at 3 mmHg. IVC appears normal. There is normal collapse with deep inspiration. Mitral Valve Mitral valve structure is normal. There is uyqim-ka-kuid regurgitation. There is no evidence of mitral valve stenosis. Tricuspid Valve Tricuspid valve appears to be normal. RVSP calculated at 23 mmHg. RVSP is based on RA pressure of 3 mmHg. Aortic Valve The aortic valve is trileaflet. There is no regurgitation or stenosis. Pulmonic Valve The pulmonic valve was not well visualized. There is trace regurgitation. Ascending Aorta The aortic root is normal in size. Pericardium There is no pericardial effusion. Study Details A complete echo was performed using complete 2D, color flow Doppler and spectral Doppler. Overall the study quality was adequate. Wall Scoring Baseline Score Index: 1.00 The left ventricular wall motion is normal. Jayleen Black CASINO CONTROLLER-WAREHOUSE ADMINISTRATOR CV ECHO ORDERABLES Final Result * Dexa scan central skeletal (04/07/2025 12:38 PM EDT) Anatomical Region Laterality Modality N/A Radiographic Una ging Gaurav Mason DO IMG DXA ORDERABLES Final Res ult * Mammography screening bilateral with CAD (10/20/2024 9:43 AM EST) Anatomical Region Laterality Modality Breast Bilateral Mammography 10/21/2024 12:3 4 PM EST Narrative 10/21/2024 12:35 PM EST MEME SCHMIDT DANELLE 1955 [id number] EXAM: MAMM SCREENING BILATERAL W CAD, 10/20/2024 9:25 AM CLINICAL INDICATIONS: Screening, Encounter for screening mammogram for malignant neoplasm of breast COMPARISON: Multiple prior mammograms were viewed for comparison dating back to 2021 TECHNIQUE: Bilateral digital tomosynthesis MLO and CC views of the breasts were obtained, with creation of synthetic 2D views. Computer aided detection was utilized. FINDINGS: There are scattered areas of fibroglandular density. There are no suspicious masses, calcifications, or areas of architectural distortion. IMPRESSION: No mammographic evidence of malignancy. BI-RADS: BI-RADS 1 - Negative RECOMMENDATION: Routine screening mammogram in 1 year. RISK ASSESSMENT: TC Lifetime risk: 5.3%. The patient's reported personal and family medical history was used calculate their Tyrer-Cuzick lifetime risk of malignancy. Scores less than 20% are not considered high risk per ACR guidelines and patient should continue with the above recommendation. Finalized by Delfino Sultana MD on 10/21/2024 12:35 PM 1 b MAMM 1 YR [facility] Accredited Performing Facility: [facility] - Mammography/DEXA Imaging [address] [facility] [id number] Procedure Note Delfino Sultana MD - 10/21/2024 MEME SALAZAR 1955 [id number] EXAM: MAMM SCREENING BILATERAL W CAD, 10/20/2024 9:25 AM CLINICAL INDICATIONS: Screening, Encounter for screening mammogram formalignant neoplasm of breast COMPARISON: Multiple prior mammograms were viewed for comparison datingback to 2021 TECHNIQUE: Bilateral digital tomosynthesis MLO and CC views of the breastswere obtained, with creation of synthetic 2D views. Computer aideddetection was utilized. FINDINGS: There are scattered areas of fibroglandular density. There are no suspicious masses, calcifications, or areas of architecturaldistortion. IMPRESSION: No mammographic evidence of malignancy. BI-RADS: BI-RADS 1 - Negative RECOMMENDATION: Routine screening mammogram in 1 year. RISK ASSESSMENT: TC Lifetime risk: 5.3%. The patient's reported personal and family medical history was usedcalculate their Tyrer-Cuzick lifetime risk of malignancy. Scores less than20% are not considered high risk per ACR guidelines and patient shouldcontinue with the above recommendation. Finalized by Delfino Sultnaa MD on 10/21/2024 12:35 PM 1 b MAMM 1 YR FDA Accredited Performing Facility: [facility] - Mammography/DEXA Imaging [address] [place] [address] [place] Jayleen Black CASINO CONTROLLER-WAREHOUSE ADMINISTRATOR IMG MAMMOGRAPHY ORDERABL ES Final Result * Colonoscopy (12/09/2016) us Not In System Ref Prov GI PROCEDURE ORDERABLES F inal Result MANUALLY TRANSCRIBED RESULTS from Last 3 Months or Most Recently Relevant to Health Maintenance Insurance [employer] [employer] Care Teams Rheumatology Nurse Relationship Specialty Start Date End Date Jayleen Black, CASINO CONTROLLER-WAREHOUSE ADMINISTRATOR [address] [place] [address] PCP - General Internal Medicine 04/24/24
--- OUTSIDE RECORDS SUMMARY | 2025-07-08 16:11 | XMS_ITS | Encounter Summary ---
Author Organization [facility] Sy [facility] Address [id number] [address] [place] [address] Care Team Providers Care Milling Supervisor Name Role Phone Jayleen Black PEDIATRIC UROLOGIST-SHADOWGRAPH OPERATOR Primary Care Provider + Reason for Visit * Reason Onset Date Comments Med Refill 06/08/2024 Encounter Details Date Type Department Care Team (Late st Contact Info) Description 06/08/2024 Refill [facility] - Family Medicine [address] [place] [address] Jayleen Black, [facility] [address] [place] [address] Osteoarthritis of spine with radiculopathy, lumbar region Social History Tobacco Use Types Packs/Day Years Used Date Smoking Tobacco: Never Smokeless Tobacco: Never Alcohol Use Standard Drinks/Week Comments No 0 (1 standard drink = 0.6 oz pur e alcohol) [facility] Utilities Answer Date Recorded In the past 12 months has [employer], gas, oil, or water [employer] threatened to shut off services in your [...] often do you attend chur ch or sikhism services? Never 03/23/2024 Do you belong to any clubs o r organizations such as sikhism groups, unions, fraternal or athletic groups, or [...] Answer Date Recorded Total Score 0 03/23/2024 [facility] - Occupational [...] Recorded Do you need help finding a [facility] career center and/or a training [...] Medicine - Family Medicine [address] [place] [address] Jayleen Black, PEDIATRIC UROLOGIST-SHADOWGRAPH OPERATOR [address] [facility] [place] [address] documented as of this encounter Visit Diagnoses Diagnosis Osteoarthritis of spine with radiculopathy, lumbar region documented in this encounter Additional Health Concerns Assessment Noted Time PHQ-9 Depression Total Score: 0 03/23/20 3:55 PM EDT A Body Mass Index follow-up plan has been documented for the patient 03/23/2024 4:44 PM EDT documented as of this encounter Care Teams Milling Supervisor Relationship Specialty Start Date End Date Jayleen Black, PEDIATRIC UROLOGIST-SHADOWGRAPH OPERATOR [address] [place] [address] PCP - General Internal Medicine 04/24/24 documented as of this encounter
--- OUTSIDE RECORDS SUMMARY | 2025-07-08 16:11 | XMS_ITS | Encounter Summary ---
Author Organization [facility] [employer] [facility] tem Address [id number] [address] [place] [address] Care Team Providers Care Deli Department Manager Name Role Phone Jayleen Black WATER GAS OPERATOR-BOX STAPLER Primary Care Provider + Reason for Visit * Reason Onset Date Comments Med Refill 04/25/2025 Encounter Details Date Type Department Care Team (Late st Contact Info) Description 04/25/2025 Refill [facility] - Family Medicine [address] [place] [address] Jayleen Black, [facility] [address] [place] [address] Chronic anxiety Social History Tobacco Use Types Packs/Day Years Used Date Smoking Tobacco: Never Smokeless Tobacco: Never Alcohol Use Standard Drinks/Week Comments No 0 (1 standard drink = 0.6 oz pur e alcohol) [facility] Utilities Answer Date Recorded In the past 12 months has [employer], gas, oil, or water [email or web address] threatened to shut off services in your [...] How often do you attend chur or samaritan services? Never 03/23/2024 Do you belong to any clubs o r organizations such as mu-ism groups, unions, fraternal or athletic groups, or [...] Answer Date Recorded Total Score 0 04/29/2025 [facility] - Occupational [...] Recorded Do you need help finding a [facility] career center and/or a training program? No [...] Medicine [address] [place] [address] Jayleen Black, WATER GAS OPERATOR-BOX STAPLER [address] [facility] [place] [address] documented as of this encounter Visit Diagnoses Diagnosis Chronic anxiety Anxiety state, unspecified documented in this encounter Additional Health Concerns Assessment Noted Time PHQ-9 Depression Total Score: 0 02/25/20 25 9:06 AM EDT A Body Mass Index follow-up plan has been documented for the patient 03/23/2024 4:44 PM EDT documented as of this encounter Care Teams Deli Department Manager Relationship Specialty Start Date End Date Jayleen Black, WATER GAS OPERATOR-BOX STAPLER [address] [place] [address] PCP - General Internal Medicine 04/24/24 documented as of this encounter
--- OUTSIDE RECORDS SUMMARY | 2025-07-08 16:11 | XMS_ITS | Encounter Summary ---
[facility] Organization [facility] Sy [facility] Address [id number] [address] [place] [address] Care Team Providers Care Classifying Machine Operator Name Role Phone Jayleen Black INSTITUTIONAL COMMODITY ANALYST-TECHNOLOGY RESOURCE TEACHER Primary Care Provider + Encounter Details Date Type Department Care Team (Late st Contact Info) Description 12/13/2022 Orders Only [facility] - Family Medicine [address] [place] [phone] Angela Pederson CMA Pain and swelling of left lower leg Social History Tobacco Use Types Packs/Day Years [...] have Coronavirus / COVID-19? No / Unsure 12/03/2022 1:51 PM EST documented as of this encounter Plan of Treatment Upcoming Encounters Date Type Department Care Team (Late st Contact Info) Description 08/05/2025 11:20 AM EDT Office Visit [facility] - Family Medicine [address] [place] [address] Jayleen Black APRN-CNP [address] [place] [address] documented as of this encounter Procedures Procedure Name Priority Date/Time Associated Diagnosis Comments VASC VENOUS DUPLEX LOWER LEFT Routine 12/13/2022 9:10 AM EST Pain and swelling of left lower leg documented in this encounter Results * Vas venous duplex lwr single left (12/13/2022 9:10 AM EST) Anatomical Region Laterality Modality Vascular Left Ultrasound us Gonzalez Simon DO CV VASCULAR ORDERABLES Final Res ult documented in this encounter Visit Diagnoses Diagnosis Pain and swelling of left lower leg documented in this encounter Additional Health Concerns Assessment Noted Time PHQ-9 Depression Total Score: 4 09/04/20 22 1:37 PM EDT documented as of this encounter Care Teams Classifying Machine Operator Relationship Specialty Start Date End Date Jayleen Black APRN-CNP [address] [place] [address] PCP - General Internal Medicine 04/24/24 documented as of this encounter
--- OUTSIDE RECORDS SUMMARY | 2025-07-08 16:11 | XMS_ITS | Encounter Summary ---
Author Organization [employer] s tem Address [id number] [address] [place] [address] Care Team Providers Care Inventory Control Assistant Name Role Phone Jayleen Black Marybeth ACCESS MANAGER-EQUITY MANAGER Primary Care Provider + Reason for Visit * Reason Onset Date Comments Med Refill 05/21/2024 Encounter Details Date Type Department Care Team (Late st Contact Info) Description 05/21/2024 Refill [facility] - [facility] [address] [place] [phone] Jaida Coulter, ACCESS MANAGER-NOZZLEMAN [address] [place] [address] Chronic anxiety Social History Tobacco Use Types Packs/Day Years Used Date Smoking Tobacco: Never Smokeless Tobacco: Never Alcohol Use Standard Drinks/Week Comments No 0 (1 standard drink = 0.6 oz pur e alcohol) [facility] Utilities Answer Date Recorded In the past 12 months has [employer], gas, oil, or water [employer] threatened to shut off services in your [...] often do you attend chur ch or scientologist services? Never 03/23/2024 Do you belong to [...] Answer Date Recorded Total Score 0 03/23/2024 [facility] - [...] Recorded Do you need help finding a [facility] career center and/or a training [...] Medicine - Family Medicine [address] [place] [address] Jayleen Black, ACCESS MANAGER-EQUITY MANAGER [address] [place] [address] documented as of this encounter Visit Diagnoses Diagnosis Chronic anxiety Anxiety state, unspecified documented in this encounter Additional Health Concerns Assessment Noted Time PHQ-9 Depression Total Score: 0 03/23/20 3:55 PM EDT A Body Mass Index follow-up plan has been documented for the patient 03/23/2024 4:44 PM EDT documented as of this encounter Care Teams Inventory Control Assistant Relationship Specialty Start Date End Date Jayleen Black ACCESS MANAGER-EQUITY MANAGER [address] [place] [address] PCP - General Internal Medicine 04/24/24 documented as of this encounter
--- OUTSIDE RECORDS SUMMARY | 2025-07-08 16:11 | XMS_ITS | Encounter Summary ---
Author Organization [employer] Sy tem Address [facility] [id number] [address] [place] [address] Care Team Providers Care Toe Lining Closer Name Role Phone Jayleen Black Marybeth HAIRSPRING I INSPECTOR-STATIONARY BOILER FIREMAN Primary Care Provider + Encounter Details Date Type Department Care Team (Late st Contact Info) Description 04/07/2025 Orders Only [facility] - Family Medicine [address] [place] [phone] Juan Stapleton CMA Asymptomatic menopausal state Social History Tobacco Use Types Packs/Day Years Used Date Smoking Tobacco: Never Smokeless Tobacco: Never Alcohol Use Standard Drinks/Week Comments No 0 (1 standard drink = 0.6 oz pur e alcohol) [facility] Utilities Answer Date Recorded In the [...] often do you attend chur ch or mandaen services? Never 03/23/2024 Do you belong to any clubs o r organizations such as buddhist groups, unions, fraternal or athletic groups, or [...] Answer Date Recorded Total Score 0 02/24/2025 [facility] - Occupational Stress Questionnaire Answer Date Recorded [...] Recorded Do you need help finding a [facility] career center and/or a training program? No [...] Medicine - Family Medicine [address] [place] [address] Jayleen Black, HAIRSPRING I INSPECTOR-STATIONARY BOILER FIREMAN [address] [place] [address] documented as of this encounter Procedures Procedure Name Priority Date/Time Associated Diagnosis Comments DEXA SCAN CENTRAL SKELETAL Routine 04/07/2025 12:38 PM EDT Asymptomatic menopausal state documented in this encounter Results * Dexa scan central skeletal (04/07/2025 12:38 PM EDT) Anatomical Region Laterality Modality N/A Radiographic Una ging us Gaurav Mason DO IMG DXA ORDERABLES Final Res ult documented in this encounter Visit Diagnoses Diagnosis Asymptomatic menopausal state documented in this encounter Additional Health Concerns Assessment Noted Time PHQ-9 Depression Total Score: 0 02/25/20 25 9:06 AM EDT A Body Mass Index follow-up plan has been documented for the patient 03/23/2024 4:44 PM EDT documented as of this encounter Care Teams Toe Lining Closer Relationship Specialty Start Date End Date Jayleen Black APRN-STATIONARY BOILER FIREMAN [address] [place] [address] PCP - General Internal Medicine 04/24/24 documented as of this encounter
--- OUTSIDE RECORDS SUMMARY | 2025-07-08 16:11 | XMS_ITS | Encounter Summary ---
Author Organization [facility] Address [address] [place] [address] Care Team Providers Care Rcis Name Role Phone Gonzalez Simon MD Primary Care Provider [phone] Reason for Visit * Reason Onset Date Comments Numbness 07/05/2025 Encounter Details Date Type Department Care Team (Late st Contact Info) Description 07/05/2025 Telephone [facility] [address] [place] [phone] Jr. Walker Hayden, DO [address] [address] Numbness Social History Tobacco Use Types Packs/Day Years [...] encounter Miscellaneous Notes * Telephone Encounter - Kiley Leon - 07/05/2025 10:05 AM EDT LMF Trigger release 06/30/25, post op appt 07/15/25 Patient having numbness and tingling in her LMF & LIF & hand is cold to touch. Asking if this Is normal? documented in this encounter Plan of Treatment Upcoming Encounters Date Type Department Care Team (Late st Contact Info) Description 07/11/2025 8:00 AM EDT [facility] [address] [place] [address] Yannick Newman, LINE INSTALLER REPAIRER [address] [place] [address] documented as of this encounter Visit Diagnoses Not on filedocumented in this encounter Care Teams Rcis Relationship Specialty Start Date End Date Gonzalez Simon MD [address] [place] [address] PCP - General Internal Medicine 04/06/25 documented as of this encounter
--- OUTSIDE RECORDS SUMMARY | 2025-07-08 16:11 | XMS_ITS | Encounter Summary ---
Author Organization [facility] Address [facility] [id number] [address] [place] [address] Care Team Providers Care Diesel Mechanic Construction Name Role Phone Jayleen Black SENIOR INFORMATICA DEVELOPER-SERVICE SUPERVISOR Primary Care Provider + Reason for Referral * Vascular (Routine) - Closed Specialty Diagnoses / Procedures Referred By Contac t Referred To Contact Diagnoses Pain and swelling of left lower leg Procedures Vas venous duplex lwr single left Gonzalez Simon DO [address] [place] [address] Phone: tel: fax: Referral ID Status Reason Start Date Expiration Date Visits Re quested Visits Authorized [id number] Closed 12/12/2022 12/12/2023 1 1 Encounter Details Date Type Department Care Team (Late st Contact Info) Description 12/12/2022 Orders Only [facility] - Family Medicine [address] [place] [address] Gonzalez Simon DO [address] [place] [address] Pain and swelling of left lower leg (Primary Dx) Social History Tobacco Use Types [...] Internal Medicine - Family Medicine [address] [facility] [place] [address] Jayleen Black, SENIOR INFORMATICA DEVELOPER-SERVICE SUPERVISOR [address] [place] [address] documented as of this encounter Results * Vas venous duplex lwr single left (12/13/2022 9:10 AM EST) Anatomical Region Laterality Modality Vascular Left Ultrasound Gonzalez Simon DO CV VASCULAR ORDERABLES Final Res ult documented in this encounter Visit Diagnoses Diagnosis Pain and swelling of left lower leg- Primary documented in this encounter Additional Health Concerns Assessment Noted Time PHQ-9 Depression Total Score: 4 09/04/20 22 1:37 PM EDT documented as of this encounter Care Teams Diesel Mechanic Construction Relationship Specialty Start Date End Date Jayleen Black, SENIOR INFORMATICA DEVELOPER-SERVICE SUPERVISOR [address] [facility] [place] [address] PCP - General Internal Medicine 04/24/24 documented as of this encounter
--- NOTE | 2025-07-08 17:36 | ED.GENADUL1 ---
HPI HPI - General Adult General Chief complaint: Recheck/Abnormal Lab/Rx Stated complaint: Remove Stitches Time Seen by Provider: 07/08/25 16:13 Source: patient Mode of arrival: walk-in Limitations: no limitations History of Present Illness HPI narrative: Patient presents to the emergency department for removal of 5 sutures in the left hand following trigger finger surgery performed on June 30. She reports mild swelling around the incision site. Patient states she has experienced similar localized reactions to sutures in the past and believes she has an allergy to them. The sutures are located on the palmar aspect just proximal to the ring finger. She denies numbness, tingling, fever, or drainage. She endorses tenderness around the wound. She is able to move her fingers freely. Patient has a scheduled follow-up with her hand surgeon in 2 days but was sent to the ED for suture removal since her surgeon was unavailable today. She has no other complaints. Related Data Allergies Allergy/AdvReac Type Severity Reaction Status Date / Time cephalexin Allergy Severe Hives Verified 07/08/25 16:09 Penicillins Allergy Severe Hives Verified 07/08/25 16:09 sulfamethoxazole (From Allergy Severe Hives Verified 07/08/25 16:09 Bactrim) trimethoprim (From Bactrim) Allergy Severe Hives Verified 07/08/25 16:09 Opioid HPI Opioid Management Most Recent Opioid Data: Last Pain Scale 6 Today, 16:10 PFSH PFSH Social History Little interest or pleasure in doing things: not at all Feeling down, depressed, or hopeless: not at all Exam Constitutional Vital Signs, click to edit/add: Last Vital Signs Temp 98.3 F 07/08/25 16:10 Pulse 79 07/08/25 16:10 Resp 16 07/08/25 16:10 BP 163/91 H 07/08/25 16:10 Pulse Ox 98 07/08/25 16:10 O2 Del Method Room Air 07/08/25 16:10 Course Vital Signs Vital signs: Vital Signs Temperature 98.3 F 07/08/25 16:10 Pulse Rate 79 07/08/25 16:10 Respiratory Rate 16 07/08/25 16:10 Blood Pressure 163/91 H 07/08/25 16:10 Pulse Oximetry 98 07/08/25 16:10 Oxygen Delivery Method Room Air 07/08/25 16:10 Temperature 98.3 F 07/08/25 16:10 Pulse Rate 79 07/08/25 16:10 Respiratory Rate 16 07/08/25 16:10 Blood Pressure 163/91 H 07/08/25 16:10 Pulse Oximetry 98 07/08/25 16:10 Oxygen Delivery Method Room Air 07/08/25 16:10 Medical Decision Making MDM Narrative Medical decision making narrative: The patient presents to the emergency department for removal of 5 sutures from her left hand following trigger finger surgery performed on June 30. She reports mild swelling around the incision site and states she has experienced similar localized reactions in the past due to what she describes as a suture allergy. The sutures are located on the palmar aspect just proximal to the ring finger. She reports tenderness around the wound but denies numbness, tingling, fever, or drainage. She is able to move her fingers freely. She was referred to the ED for suture removal since her surgeon was unavailable to see her in the office today. She has a follow-up scheduled with her surgeon in 2 days. She has no additional complaints. Exam reveals mild swelling and localized erythema at the incision site with tenderness to touch. There is no drainage or dehiscence noted. No streaking erythema extends into the hand or arm. The wound is without fluctuance. The patient demonstrates good range of motion of all fingers, and there are no Kanavel signs present. Neurovascular status is intact. All five sutures were removed without difficulty. No drainage or wound dehiscence was observed following removal. An attempt was made to contact her surgeon, Dr. Klein, but he was unavailable. The patient reports that this type of localized reaction has occurred before and is comfortable with outpatient follow-up. Medical Records Medical records reviewed: Yes I reviewed the patient's medical records Lab Data Lab results reviewed: Yes I reviewed the patient's lab results Discharge Plan Discharge Chief Complaint: Recheck/Abnormal Lab/Rx Clinical Impression: Encounter for removal of sutures, History of hand surgery Patient Disposition: Home, Self-Care Time of Disposition Decision: 17:20 Condition: Good Print Language: [place] Instructions: Stitches Removal (ED) Referrals: ARIS MONTEIRO [Primary Care Provider, Unknown] - 1 week Walker Hayden DO [Physician] - 1 week Referral Note: Friday as scheduled Discharge Date/Time: 07/08/25 17:46
--- NOTE | 2025-07-08 21:16 | ED_ITS ---
HPI HPI - General Adult General Chief complaint: Recheck/Abnormal Lab/Rx Stated complaint: Remove Stitches Time Seen by Provider: 07/08/25 16:13 Source: patient Mode of arrival: walk-in Limitations: no limitations Related Data Allergies Allergy/AdvReac Type Severity Reaction Status Date / Time cephalexin Allergy Severe Hives Verified 07/08/25 16:09 Penicillins Allergy Severe Hives Verified 07/08/25 16:09 sulfamethoxazole (From Allergy Severe Hives Verified 07/08/25 16:09 Bactrim) trimethoprim (From Bactrim) Allergy Severe Hives Verified 07/08/25 16:09 Opioid HPI Opioid Management Most Recent Opioid Data: Last Pain Scale 6 Today, 16:10 PFSH PFSH Social History Little interest or pleasure in doing things: not at all Feeling down, depressed, or hopeless: not at all Exam Constitutional Vital Signs, click to edit/add: Last Vital Signs Temp 98.3 F 07/08/25 16:10 Pulse 79 07/08/25 16:10 Resp 16 07/08/25 16:10 BP 163/91 H 07/08/25 16:10 Pulse Ox 98 07/08/25 16:10 O2 Del Method Room Air 07/08/25 16:10 Course Vital Signs Vital signs: Vital Signs Temperature 98.3 F 07/08/25 16:10 Pulse Rate 79 07/08/25 16:10 Respiratory Rate 16 07/08/25 16:10 Blood Pressure 163/91 H 07/08/25 16:10 Pulse Oximetry 98 07/08/25 16:10 Oxygen Delivery Method Room Air 07/08/25 16:10 Temperature 98.3 F 07/08/25 16:10 Pulse Rate 79 07/08/25 16:10 Respiratory Rate 16 07/08/25 16:10 Blood Pressure 163/91 H 07/08/25 16:10 Pulse Oximetry 98 07/08/25 16:10 Oxygen Delivery Method Room Air 07/08/25 16:10 Discharge Plan Discharge Chief Complaint: Recheck/Abnormal Lab/Rx Clinical Impression: Encounter for removal of sutures, History of hand surgery Patient Disposition: Home, Self-Care Time of Disposition Decision: 17:20 Condition: Good Print Language: Danish Instructions: Stitches Removal (ED) Referrals: ARIS MONTEIRO [Primary Care Provider, Unknown] - 1 week Walker Hayden DO [Physician] - 1 week Referral Note: Friday as scheduled Discharge Date/Time: 07/08/25 17:46
== END 2025-07-08 17:46 | disposition home or self-care (01) ==
PROVIDERS: Emergency Provider Student in an Organized Health Care Education/Training Program; PCP Nurse Practitioner Family
DX: Z48.02 Encounter for removal of sutures (principal); Z98.890 Other specified postprocedural states
CPT/HCPCS: 99281